=== PATIENT | female | born 1990 | race Caucasian/White ===

== ENCOUNTER 2017-01-08 03:31 | Emergency (ER) | payer MEDICAID ==
[~2017-01-08] VITALS: Ht 160 cm; Wt 68.0 kg
[~2017-01-08 03:31] MED LIST: HYDR-3812 PO; IBP800T PO; OXYC-12 PO; PREN1TAB39 PO
[2017-01-08 04:09] LABS: BILIRUBIN,URINE NEGATIVE (NEGATIVE); KETONES,URINE NEGATIVE (NEGATIVE); LEUKOCYTE ESTERASE ,URINE 3+ (NEGATIVE); NITRITE,URINE NEGATIVE (NEGATIVE); PH,URINE 7 (5-9); PROTEIN,URINE 1+ (NEGATIVE); UROBILINOGEN,URINE 1 MG/DL (NORMAL)
--- NOTE | 2017-01-08 04:13 | ED GU-Female ---
General Chief Complaint: -Female Stated Complaint: YEAST INFECTION,8 WKS PREG Source: patient History of Present Illness Time seen by provider: 03:50 Initial Comments PT STATES SHE IS 8 WEEKS HAS HAD THICK WHITE VAGINAL DISCHARGE AND ITCHING --STATES SHE HAS A YEAST INFECTION NO ABDOMINAL PAIN NO VAGINAL BLEEDING HAS SOME MILD BURNING ON URINATION HAS AN APPOINTMENT ON SATURDAY WITH HER SCHOOL AIDE Allergies and Home Medications Allergies Coded Allergies: NKANo Known Allergies (Verified Allergy, Unknown, 06/11/08) Home Medications Nitrofurantoin Monohyd/M-Cryst 100 Mg Capsule, 100 MG PO BID, #20 Prescribed by: FREDDIE GONCALVES on 01/08/17 0421 Vit/Iron Fumarate/FA 1 Each Tablet, 1 EACH PO DAILY, (Reported) Respiratory: no symptoms reported Cardiovascular: no symptoms reported Gastrointestinal: no symptoms reported Genitourinary: see HPI : Yes Musculoskeletal: no symptoms reported Skin: no symptoms reported Past Wsnnbgz-Nrrzpj-Mamyel Hx Patient Social History Type Used: Cigarettes Recent Foreign Travel: No Contact w/Someone Who Travel: No Recent Hopitalizations: No Immunizations Up To Date Tetanus Booster (TDap): Unknown PED Vaccines UTD: Yes Seasonal Allergies Seasonal Allergies: No Surgeries HX Surgeries: Yes (skull surgery at 10 months of age) Respiratory Hx Respiratory Disorders: No Cardiovascular Hx Cardiac Disorders: No Neurological Hx Neurological Disorders: No Reproductive System Hx Reproductive Disorders: No Sexually Transmitted Disease: Yes Female Reproductive Disorders: Denies Genitourinary Hx Genitourinary Disorders: No (uti- february 2016) Gastrointestinal Hx Gastrointestinal Disorders: No Musculoskeletal Hx Musculoskeletal Disorders: Yes (had skull surgery fpr fused suture at 10 months of age) Endocrine Hx Endocrine Disorders: No HEENT HX ENT Disorders: No Cancer Hx Cancer: No Psychosocial Hx Psychiatric Problems: No Integumentary HX Skin/Integumentary Disorder: No Blood Transfusions Hx Blood Disorders: No Family Medical History Significant Family History: No Pertinent Family Hx Physical Exam Vital Signs Capillary Refill : General Appearance: WD/WN, no apparent distress Cardiovascular: regular rate, rhythm Respiratory: normal breath sounds Gastrointestinal: normal bowel sounds, non tender, soft Pelvic: discharge, No lesions, No mass, No tender w/ cervical motion, No tender adnexa, No tender uterus, No vaginal bleeding, other (ERYTHEMA TO EXTERNAL GENITAL AREA) Back: no CVA tenderness Extremities: normal inspection, no pedal edema Neurologic/Psychiatric: bit tapper II-XII nml as tested, no motor/sensory deficits, alert, normal mood/affect, oriented x 3 Progress/Results/Core Measures Results/Orders Lab Results My Orders Departure Impression Impression: Primary Impression: Vaginitis affecting in first trimester, antepartum Additional Impression: UTI (urinary tract infection) in in first trimester Disposition: HOME, SELF-CARE Condition: Stable Departure-Patient Inst. Referrals: [facility] (PCP/Family) Primary Care Physician Patient Instructions: Urinary Tract Infection, Adult (DC), Vaginal Discharge in Adults Add. Discharge Instructions: TYLENOL NEEDED FOR PAIN LOTS OF WATER, NO COFFEE, POP OR TEA OVER THE COUNTER YEAST MEDICATION ADVISED BY YOUR DR FOLLOW UP WITH YOUR DR ON SATURDAY SCHEDULED All discharge instructions reviewed with patient and/or family. Voiced understanding. Scripts Nitrofurantoin Monohyd/M-Cryst (Macrobid 100 mg Capsule) 100 Mg Capsule 100 MG PO BID, #20 CAP Prov: FREDDIE GONCALVES DO 01/08/17 FREDDIE GONCALVES DO Jan 08, 2017 04:12
[2017-01-08 04:16] LABS: SQUAMOUS EPITHELIAL CELL,UR >50 /HPF
[2017-01-08] MEDS ORDERED: PREN-37 PO (04:20)
[2017-01-08] MEDS ORDERED: NITR-65 PO (04:21)
[2017-01-08 04:24] VITALS: BP 116/86
[2017-01-10 07:29] LABS: NEISSERIA GONORRHEA DNA Negative (Negative)
[2017-01-10 07:30] LABS: CHLAMYDIA DNA PROBE PT Negative (Negative)
--- OUTSIDE RECORDS SUMMARY | 2017-01-22 19:47 | XMS REPORT ---
Author EVIE Bruner [facility] eClinicalWorks Address Unknown Phone Unavailable Care Team Providers Care Pattern Changer Name Role Phone EVIE LONGORIA CP Unavailable Allergies, Adverse Reactions, Alerts Substance Reaction Event Type N.K.D.A. Info Not Available Non Drug Allergy Problems Problem Type Condition Code Onset Dates Condition Status Problem Constipation 564.00 Active Problem Urinary tract infection 599.0 Active Problem Abdominal pain 789.00 Active Medications Medication Code System Code Instructions Start Date End Date Status Dosage Norelgestromin-Eth Estradiol [facility] [address]-10 150-35 MCG/24HR Transdermal once weekly March 26, 2016 1 patch to skin Results No Known Results Summary Purpose eClinicalWorks Submission
--- OUTSIDE RECORDS SUMMARY | 2017-01-22 19:48 | XMS REPORT ---
Author AMANDA Cortez [facility] eClinicalWorks Address Unknown Phone Unavailable Care Team Providers Care Accounts Payable Representative Name Role Phone AMANDA NAILS CP Unavailable Allergies, Adverse Reactions, Alerts Substance Reaction Event Type N.K.D.A. Info Not Available Non Drug Allergy Problems Problem Type Condition Code Onset Dates Condition Status Problem Constipation 564.00 Active Problem Urinary tract infection 599.0 Active Problem Abdominal pain 789.00 Active Assessment Vaginal andrew B37.3 Active Assessment UTI (urinary tract infection) N39.0 Active Assessment Dysuria R30.0 Active Medications Medication Code System Code Instructions Start Date End Date Status Dosage Diflucan [facility] [address]-88 150 MG Orally Once a day February 01, 2016 1 tablet Amoxicillin [facility] [address]-01 500 MG Orally Three times a day 1 capsule Bactrim DS [facility] [address]-14 800-160 MG Orally Twice a day February 01, 2016 February 11, 2016 1 tablet [place] [facility] [address]-87 5-325 MG Orally every 6 hrs 1 tablet as needed Procedures Procedure Coding System Code Date URINALYSIS, AUTO, W/O SCOPE CPT-4 75213 February 01, 2016 Office Visit, Est Pt., Level 3 CPT-4 89882 February 01, 2016 Vital Signs Date/Time: February 01, 2016 Temperature 99.4 F Weight 161.4 lbs Height 62 in BMI 29.52 Index Blood Pressure Diastolic 76 mmHg Blood Pressure Systolic 104 mmHg Cardiac Monitoring Heart Rate 68 bpm Results Name Result Date Reference Range Unit Abnormality Flag UA LONG DIP (IN HOUSE) ----VERENICE 3+ 20160201 ----NIT Negative 20160201 ----Exp date 20160201 ----Lot # [id number] ----SG 1.025 20160201 ----KET Negative 20160201 ----MARÍA ELENA Negative 20160201 ----GLU Negative 20160201 ----Odor Strong 20160201 ----pH 6.5 20160201 ----BLO Negative 20160201 ----URO 1.0 20160201 ----Protein Negative 20160201 ----Lot # [id number] ----Exp date 20160201 ----Clarity Cloudy 20160201 ----Color Yellow 20160201 Summary Purpose eClinicalWorks Submission
--- OUTSIDE RECORDS SUMMARY | 2017-01-22 19:48 | XMS REPORT | Continuity of Care Document ---
Author Author [facility] Address Unknown Phone Unavailable Allergies Medications Problems Date Dx Coded Attending Type Code Diagnosis Diagnosed By 05/24/2008 V65.11 New Mommy Visit 05/24/2008 V65.11 New Mommy Visit 05/24/2008 V65.11 New Mommy Visit 05/24/2008 JOHN ABRAMS APRN V65.11 New Mommy Visit 05/24/2008 DEREK NAIK APRN V65.11 New Mommy Visit 05/24/2008 DEREK NAIK APRN A V65.11 New Mommy Visit 05/24/2008 DEREK NAIK APRN A V65.11 New Mommy Visit 05/24/2008 JOHN ABRAMS APRN V65.11 New Mommy Visit 05/24/2008 BRANDON CARDENAS DO V65.11 New Mommy Visit 05/24/2008 JOHN ABRAMS APRN V65.11 New Mommy Visit 05/24/2008 RUDI SUTTON DDS V65.11 New Mommy Visit 06/27/2009 912.4 Insect Bite Nonvenomous Of Shoulder And Upper Arm Without Infection 06/27/2009 912.4 Insect Bite Nonvenomous Of Shoulder And Upper Arm Without Infection 06/27/2009 912.4 Insect Bite Nonvenomous Of Shoulder And Upper Arm Without Infection 06/27/2009 JOHN ABRAMS APRN 912.4 Insect Bite Nonvenomous Of Shoulder And Upper Arm Without Infection 06/27/2009 DEREK NAIK APRN A 912.4 Insect Bite Nonvenomous Of Shoulder And Upper Arm Without Infection 06/27/2009 DEREK NAIK APRN A 912.4 Insect Bite Nonvenomous Of Shoulder And Upper Arm Without Infection 06/27/2009 DEREK NAIK APRN A 912.4 Insect Bite Nonvenomous Of Shoulder And Upper Arm Without Infection 06/27/2009 JOHN ABRAMS APRN R 912.4 Insect Bite Nonvenomous Of Shoulder And Upper Arm Without Infection 06/27/2009 CARDENAS BRANDON JONES K 912.4 Insect Bite Nonvenomous Of Shoulder And Upper Arm Without Infection 06/27/2009 VIKASH ABRAMS APRNIA R 912.4 Insect Bite Nonvenomous Of Shoulder And Upper Arm Without Infection 06/27/2009 WHITE DDS, RUDI J 912.4 Insect Bite Nonvenomous Of Shoulder And Upper Arm Without Infection 06/06/2010 536.8 Dyspepsia And Other Specified Disorders Of Function Of Stomach 06/06/2010 681.11 Onychia And Paronychia Of Toe 06/06/2010 536.8 Dyspepsia And Other Specified Disorders Of Function Of Stomach 06/06/2010 681.11 Onychia And Paronychia Of Toe 06/06/2010 536.8 Dyspepsia And Other Specified Disorders Of Function Of Stomach 06/06/2010 681.11 Onychia And Paronychia Of Toe 06/06/2010 JOHN ABRAMS APRN R 536.8 Dyspepsia And Other Specified Disorders Of Function Of Stomach 06/06/2010 VIKASH ABRAMS APRNIA R 681.11 Onychia And Paronychia Of Toe 06/06/2010 DEREK NAIK APRN A 536.8 Dyspepsia And Other Specified Disorders Of Function Of Stomach 06/06/2010 DONNY NAIK APRNIDI A 681.11 Onychia And Paronychia Of Toe 06/06/2010 DEREK NAIK APRN A 536.8 Dyspepsia And Other Specified Disorders Of Function Of Stomach 06/06/2010 DONNY NAIK APRNIDI A 681.11 Onychia And Paronychia Of Toe 06/06/2010 DONNY NAIK APRNIDI A 536.8 Dyspepsia And Other Specified Disorders Of Function Of Stomach 06/06/2010 DONNY NAIK APRNIDI A 681.11 Onychia And Paronychia Of Toe 06/06/2010 JOHN ABRAMS APRN R 536.8 Dyspepsia And Other Specified Disorders Of Function Of Stomach 06/06/2010 JOHN ABRAMS APRN R 681.11 Onychia And Paronychia Of Toe 06/06/2010 BRANDON CARDENAS DO K 536.8 Dyspepsia And Other Specified Disorders Of Function Of Stomach 06/06/2010 BRANDON CARDENAS DO K 681.11 Onychia And Paronychia Of Toe 06/06/2010 JOHN ABRAMS APRN R 536.8 Dyspepsia And Other Specified Disorders Of Function Of Stomach 06/06/2010 JOHN ABRAMS APRN R 681.11 Onychia And Paronychia Of Toe 06/06/2010 WHITE HAYDESRUDI 536.8 Dyspepsia And Other Specified Disorders Of Function Of Stomach 06/06/2010 HERMAN LOCKSRUDI 681.11 Onychia And Paronychia Of Toe 06/21/2010 NODX No Diagnosis 06/21/2010 NODX No Diagnosis 06/21/2010 NODX No Diagnosis 06/21/2010 JOHN ABRAMS APRN R NODX No Diagnosis 06/21/2010 HEENA GRADUATE INTERN, DEREK A NODX No Diagnosis 06/21/2010 HEENADaphnie SIMON DEREK A NODX No Diagnosis 06/21/2010 HEENA APRN, DEREK A NODX No Diagnosis 06/21/2010 JOHN ABRAMS APRN R NODX No Diagnosis 06/21/2010 BRANDON CARDENAS DO NODX No Diagnosis 06/21/2010 VIKASH ABRAMS APRNIA R NODX No Diagnosis 06/21/2010 HERMAN MCNEILL, RUDI J NODX No Diagnosis 07/19/2010 626.4 Irregular Menstrual Cycle 07/19/2010 V72.31 Embalmer/Funeral Director Exam, Routine 07/19/2010 V72.42 Test Positive Result 07/19/2010 V74.5 Std Screen 07/19/2010 626.4 Irregular Menstrual Cycle 07/19/2010 V72.31 Embalmer/Funeral Director Exam, Routine 07/19/2010 V72.42 Test Positive Result 07/19/2010 V74.5 Std Screen 07/19/2010 626.4 Irregular Menstrual Cycle 07/19/2010 V72.31 Embalmer/Funeral Director Exam, Routine 07/19/2010 V72.42 Test Positive Result 07/19/2010 V74.5 Std Screen 07/19/2010 JOHN ABRAMS APRN R 626.4 Irregular Menstrual Cycle 07/19/2010 ABRAMS GRADUATE INTERN, JOHN R V72.31 Embalmer/Funeral Director Exam, Routine 07/19/2010 ABRAMS GRADUATE INTERN, JOHN R V72.42 Test Positive Result 07/19/2010 ABRAMS GRADUATE INTERN, JOHN R V74.5 Std Screen 07/19/2010 HEENA GRADUATE INTERN, DEREK A 626.4 Irregular Menstrual Cycle 07/19/2010 HEENA GRADUATE INTERN, DEREK A V72.31 Embalmer/Funeral Director Exam, Routine 07/19/2010 HEENA GRADUATE INTERN, DEREK A V72.42 Test Positive Result 07/19/2010 HEENA GRADUATE INTERN, DEREK A V74.5 Std Screen 07/19/2010 HEENA GRADUATE INTERN, DEREK A 626.4 Irregular Menstrual Cycle 07/19/2010 HEENA GRADUATE INTERN, DEREK A V72.31 Embalmer/Funeral Director Exam, Routine 07/19/2010 HEENA GRADUATE INTERN, DEREK A V72.42 Test Positive Result 07/19/2010 HEENA GRADUATE INTERN, DEREK A V74.5 Std Screen 07/19/2010 HEENA GRADUATE INTERN, DEREK A 626.4 Irregular Menstrual Cycle 07/19/2010 HEENA GRADUATE INTERN, DEREK A V72.31 Embalmer/Funeral Director Exam, Routine 07/19/2010 HEENA GRADUATE INTERN, DEREK A V72.42 Test Positive Result 07/19/2010 HEENA GRADUATE INTERN, DEREK A V74.5 Std Screen 07/19/2010 ABRAMS GRADUATE INTERN, JHON R 626.4 Irregular Menstrual Cycle 07/19/2010 ABRAMS GRADUATE INTERN, JOHN R V72.31 Embalmer/Funeral Director Exam, Routine 07/19/2010 ABRAMS GRADUATE INTERN, JOHN R V72.42 Test Positive Result 07/19/2010 ABRAMS GRADUATE INTERN, JOHN R V74.5 Std Screen 07/19/2010 CARDENAS DO, BRANDON K 626.4 Irregular Menstrual Cycle 07/19/2010 CARDENAS DO, BRANDON K V72.31 Embalmer/Funeral Director Exam, Routine 07/19/2010 CARDENAS DO, BRANDON K V72.42 Test Positive Result 07/19/2010 CARDENAS DO, BRANDON K V74.5 Std Screen 07/19/2010 ABRAMS GRADUATE INTERN, JOHN R 626.4 Irregular Menstrual Cycle 07/19/2010 ABRAMS GRADUATE INTERN, JOHN R V72.31 Embalmer/Funeral Director Exam, Routine 07/19/2010 JOSE ALBERTO SIMON, JOHN R V72.42 Test Positive Result 07/19/2010 LUZ MARIA ABRAMS APRNRICIA R V74.5 Std Screen 07/19/2010 WHITE DDS, RUDI J 626.4 Irregular Menstrual Cycle 07/19/2010 WHITE DDS, RUDI J V72.31 Embalmer/Funeral Director Exam, Routine 07/19/2010 WHITE DDS, RUDI J V72.42 Test Positive Result 07/19/2010 WHITE DDS, RUDI J V74.5 Std Screen 08/24/2010 V22.1 , NORMAL OTHER 08/24/2010 V22.1 , NORMAL OTHER 08/24/2010 V22.1 , NORMAL OTHER 08/24/2010 VIKASH ABRAMS APRNIA R V22.1 , NORMAL OTHER 08/24/2010 HEENA SIMON, DEREK A V22.1 , NORMAL OTHER 08/24/2010 DONNY NAIK APRNIDI A V22.1 , NORMAL OTHER 08/24/2010 HEENA SIMON DEREK A V22.1 , NORMAL OTHER 08/24/2010 LUZ MARIA ABRAMS APRNRICIA R V22.1 , NORMAL OTHER 08/24/2010 THERESA JONES BRANDON K V22.1 , NORMAL OTHER 08/24/2010 LUZ MARIA ABRAMS APRNRICIA R V22.1 , NORMAL OTHER 08/24/2010 WHITE DDS, RUDI J V22.1 , NORMAL OTHER 09/05/2010 V04.3 RUBELLA NON-IMMUNE - NEED FOR VACCINATION 09/05/2010 V04.3 RUBELLA NON-IMMUNE - NEED FOR VACCINATION 09/05/2010 V04.3 RUBELLA NON-IMMUNE - NEED FOR VACCINATION 09/05/2010 VIKASH ABRAMS APRNIA R V04.3 RUBELLA NON-IMMUNE - NEED FOR VACCINATION 09/05/2010 DEREK NAIK APRN A V04.3 RUBELLA NON-IMMUNE - NEED FOR VACCINATION 09/05/2010 DEREK NAIK APRN A V04.3 RUBELLA NON-IMMUNE - NEED FOR VACCINATION 09/05/2010 DEREK NAIK APRN A V04.3 RUBELLA NON-IMMUNE - NEED FOR VACCINATION 09/05/2010 JOHN ABRAMS APRN R V04.3 RUBELLA NON-IMMUNE - NEED FOR VACCINATION 09/05/2010 CARDENAS DO, BRANDON K V04.3 RUBELLA NON-IMMUNE - NEED FOR VACCINATION 09/05/2010 JOHN ABRAMS APRN R V04.3 RUBELLA NON-IMMUNE - NEED FOR VACCINATION 09/05/2010 WHITE DDS, RUDI J V04.3 RUBELLA NON-IMMUNE - NEED FOR VACCINATION 09/12/2010 703.0 Nail Ingrown 09/12/2010 V22.2 Incidental 09/12/2010 703.0 Nail Ingrown 09/12/2010 V22.2 Incidental 09/12/2010 703.0 Nail Ingrown 09/12/2010 V22.2 Incidental 09/12/2010 JOHN ABRAMS APRN R 703.0 Nail Ingrown 09/12/2010 VIKASH ABRAMS APRNIA R V22.2 Incidental 09/12/2010 HEENA GRADUATE INTERN, DEREK A 703.0 Nail Ingrown 09/12/2010 HEENA GRADUATE INTERN, DEREK A V22.2 Incidental 09/12/2010 HEENA GRADUATE INTERN, DEREK A 703.0 Nail Ingrown 09/12/2010 HEENA GRADUATE INTERN, DEREK A V22.2 Incidental 09/12/2010 HEENA GRADUATE INTERN, DEREK A 703.0 Nail Ingrown 09/12/2010 HEENA GRADUATE INTERN, DEREK A V22.2 Incidental 09/12/2010 VIKASH ABRAMS APRNIA R 703.0 Nail Ingrown 09/12/2010 VIKASH ABRAMS APRNIA R V22.2 Incidental 09/12/2010 CARDENAS DO, BRANDON K 703.0 Nail Ingrown 09/12/2010 CARDENAS DO, BRANDON K V22.2 Incidental 09/12/2010 VIKASH ABRAMS APRNIA R 703.0 Nail Ingrown 09/12/2010 VIKASH ABRAMS APRNIA R V22.2 Incidental 09/12/2010 WHITE DDS, RUDI J 703.0 Nail Ingrown 09/12/2010 WHITE DDS, RUDI J V22.2 Incidental 11/13/2010 616.10 Vaginitis Vulvovaginitis Unspecified 11/13/2010 616.10 Vaginitis Vulvovaginitis Unspecified 11/13/2010 616.10 Vaginitis Vulvovaginitis Unspecified 11/13/2010 JOHN ABRAMS APRN R 616.10 Vaginitis Vulvovaginitis Unspecified 11/13/2010 HEENA APRN, DEREK A 616.10 Vaginitis Vulvovaginitis Unspecified 11/13/2010 HEENADONNY Eller APRNIDI A 616.10 Vaginitis Vulvovaginitis Unspecified 11/13/2010 HEENA APRN, DEREK A 616.10 Vaginitis Vulvovaginitis Unspecified 11/13/2010 JOHN ABRAMS APRN R 616.10 Vaginitis Vulvovaginitis Unspecified 11/13/2010 BRANDON CARDENAS DO 616.10 Vaginitis Vulvovaginitis Unspecified 11/13/2010 JOHN ABRAMS APRN R 616.10 Vaginitis Vulvovaginitis Unspecified 11/13/2010 RUDI SUTTON DDS 616.10 Vaginitis Vulvovaginitis Unspecified 11/21/2010 789.00 Abdominal Pain Unspecified Site 11/21/2010 789.00 Abdominal Pain Unspecified Site 11/21/2010 789.00 Abdominal Pain Unspecified Site 11/21/2010 JOHN ABRAMS APRN R 789.00 Abdominal Pain Unspecified Site 11/21/2010 HEENA SIMON, DEREK A 789.00 Abdominal Pain Unspecified Site 11/21/2010 DONNY NAIK APRNIDI A 789.00 Abdominal Pain Unspecified Site 11/21/2010 DONNY NAIK APRNIDI A 789.00 Abdominal Pain Unspecified Site 11/21/2010 JOHN ABRAMS APRN R 789.00 Abdominal Pain Unspecified Site 11/21/2010 BRANDON CARDENAS DO 789.00 Abdominal Pain Unspecified Site 11/21/2010 JOHN ABRAMS APRN R 789.00 Abdominal Pain Unspecified Site 11/21/2010 RUDI SUTTON DDS 789.00 Abdominal Pain Unspecified Site 02/07/2011 V02.51 GBS - CARRIER OR SUSPECTED CARRIER 02/07/2011 V02.51 GBS - CARRIER OR SUSPECTED CARRIER 02/07/2011 V02.51 GBS - CARRIER OR SUSPECTED CARRIER 02/07/2011 JOSE ALBERTO VILLAREALN, JOHN R V02.51 GBS - CARRIER OR SUSPECTED CARRIER 02/07/2011 HEENA GRADUATE INTERN, DEREK A V02.51 GBS - CARRIER OR SUSPECTED CARRIER 02/07/2011 HEENA GRADUATE INTERN, DEREK A V02.51 GBS - CARRIER OR SUSPECTED CARRIER 02/07/2011 HEENA GRADUATE INTERN, DEREK A V02.51 GBS - CARRIER OR SUSPECTED CARRIER 02/07/2011 JOSE ALBERTO VILLAREALNLUZ MARIAJOHN R V02.51 GBS - CARRIER OR SUSPECTED CARRIER 02/07/2011 BRANDON CARDENAS DO V02.51 GBS - CARRIER OR SUSPECTED CARRIER 02/07/2011 VIKASH ABRAMS APRNIA R V02.51 GBS - CARRIER OR SUSPECTED CARRIER 02/07/2011 RUDI SUTTON DDS V02.51 GBS - CARRIER OR SUSPECTED CARRIER 05/14/2011 623.5 vaginal discharge 05/14/2011 V24.2 visit for: exam 05/14/2011 623.5 vaginal discharge 05/14/2011 V24.2 visit for: exam 05/14/2011 623.5 vaginal discharge 05/14/2011 V24.2 visit for: exam 05/14/2011 JOSE ALBERTO VILLAREALNVIKASHIA R 623.5 vaginal discharge 05/14/2011 LUZ MARIA ABRAMS APRNRICIA R V24.2 visit for: exam 05/14/2011 HEENA GRADUATE INTERN, DEREK A 623.5 vaginal discharge 05/14/2011 HEENA GRADUATE INTERN, DEREK A V24.2 visit for: exam 05/14/2011 HEENA GRADUATE INTERN, DEREK A 623.5 vaginal discharge 05/14/2011 HEENA GRADUATE INTERN, DEREK A V24.2 visit for: exam 05/14/2011 HEENA GRADUATE INTERN, DEREK A 623.5 vaginal discharge 05/14/2011 HEENA GRADUATE INTERN, DEREK A V24.2 visit for: exam 05/14/2011 VIKASH ABRAMS APRNIA R 623.5 vaginal discharge 05/14/2011 LUZ MARIA ABRAMS APRNRICIA R V24.2 visit for: exam 05/14/2011 CARDENAS DO, BRANDON K 623.5 vaginal discharge 05/14/2011 BRANDON CARDENAS DO V24.2 visit for: exam 05/14/2011 JOHN ABRAMS APRN R 623.5 vaginal discharge 05/14/2011 JOHN ABRAMS APRN R V24.2 visit for: exam 05/14/2011 WHITE HAYDESRUDI J 623.5 vaginal discharge 05/14/2011 WHITE DDS, RUDI J V24.2 visit for: exam 08/07/2011 372.30 CONJUNCTIVITIS UNSPECIFIED 08/07/2011 372.30 CONJUNCTIVITIS UNSPECIFIED 08/07/2011 372.30 CONJUNCTIVITIS UNSPECIFIED 08/07/2011 JOHN ABRAMS APRN R 372.30 CONJUNCTIVITIS UNSPECIFIED 08/07/2011 HEENA GRADUATE INTERN, DEREK A 372.30 CONJUNCTIVITIS UNSPECIFIED 08/07/2011 HEENA GRADUATE INTERN, DEREK A 372.30 CONJUNCTIVITIS UNSPECIFIED 08/07/2011 HEENA AURORA, DEREK A 372.30 CONJUNCTIVITIS UNSPECIFIED 08/07/2011 JOHN ABRAMS APRN R 372.30 CONJUNCTIVITIS UNSPECIFIED 08/07/2011 BRANDON CARDENAS DO 372.30 CONJUNCTIVITIS UNSPECIFIED 08/07/2011 JOHN ABRAMS APRN R 372.30 CONJUNCTIVITIS UNSPECIFIED 08/07/2011 RUDI SUTTON DDS J 372.30 CONJUNCTIVITIS UNSPECIFIED 01/21/2012 V25.41 visit for: contraceptive surveillance pill 01/21/2012 V74.5 visit for: screening exam bact/spirochetal venereal disease 01/21/2012 V76.2 Cervical Pap Smear 01/21/2012 V25.41 visit for: contraceptive surveillance pill 01/21/2012 V74.5 visit for: screening exam bact/spirochetal venereal disease 01/21/2012 V76.2 Cervical Pap Smear 01/21/2012 V25.41 visit for: contraceptive surveillance pill 01/21/2012 V74.5 visit for: screening exam bact/spirochetal venereal disease 01/21/2012 V76.2 Cervical Pap Smear 01/21/2012 JOHN ABRAMS APRN R V25.41 visit for: contraceptive surveillance pill 01/21/2012 JOHN ABRAMS APRN V74.5 visit for: screening exam bact/ spirochetal venereal disease 01/21/2012 VIKASH ABRAMS APRNIA R V76.2 Cervical Pap Smear 01/21/2012 HEENA SIMON DEREK A V25.41 visit for: contraceptive surveillance pill 01/21/2012 HEENA VILLAREALDaphnie DEREK A V74.5 visit for: screening exam bact/ spirochetal venereal disease 01/21/2012 HEENA SIMON DEREK A V76.2 Cervical Pap Smear 01/21/2012 HEENA VILLAREALDaphnie DEREK A V25.41 visit for: contraceptive surveillance pill 01/21/2012 HEENA VILLAREALDaphnie DEREK A V74.5 visit for: screening exam bact/ spirochetal venereal disease 01/21/2012 HEENA SIMON DEREK A V76.2 Cervical Pap Smear 01/21/2012 HEENA VILLAREALDaphnie DEREK A V25.41 visit for: contraceptive surveillance pill 01/21/2012 HEENA VILLAREALDONNY EllerIDI A V74.5 visit for: screening exam bact/ spirochetal venereal disease 01/21/2012 HEENA VILLAREALDaphnie DEREK A V76.2 Cervical Pap Smear 01/21/2012 VIKASH ABRAMS APRNIA R V25.41 visit for: contraceptive surveillance pill 01/21/2012 VIKASH ABRAMS APRNIA R V74.5 visit for: screening exam bact/ spirochetal venereal disease 01/21/2012 VIKASH ABRAMS APRNIA R V76.2 Cervical Pap Smear 01/21/2012 ALVIN CARDENAS DOA K V25.41 visit for: contraceptive surveillance pill 01/21/2012 BRANDON CARDENAS DO K V74.5 visit for: screening exam bact/spirochetal venereal disease 01/21/2012 BRANDON CARDENAS DO K V76.2 Cervical Pap Smear 01/21/2012 VIKASH ABRAMS APRNIA R V25.41 visit for: contraceptive surveillance pill 01/21/2012 VIKASH ABRAMS APRNIA R V74.5 visit for: screening exam bact/ spirochetal venereal disease 01/21/2012 VIKASH ABRAMS APRNIA R V76.2 Cervical Pap Smear 01/21/2012 RUDI SUTTON DDS V25.41 visit for: contraceptive surveillance pill 01/21/2012 RUDI SUTTON DDS V74.5 visit for: screening exam bact/ spirochetal venereal disease 01/21/2012 RUDI SUTTON DDS V76.2 Cervical Pap Smear 01/19/2013 V25.01 CONTRACEPTION - ORAL CONTRACEPTION 01/19/2013 V76.10 BREAST CANCER SCREENING 01/19/2013 V25.01 CONTRACEPTION - ORAL CONTRACEPTION 01/19/2013 V76.10 BREAST CANCER SCREENING 01/19/2013 V25.01 CONTRACEPTION - ORAL CONTRACEPTION 01/19/2013 V76.10 BREAST CANCER SCREENING 01/19/2013 JOHN ABRAMS APRN R V25.01 CONTRACEPTION - ORAL CONTRACEPTION 01/19/2013 JOHN ABRAMS APRN R V76.10 BREAST CANCER SCREENING 01/19/2013 DONNY NAIK APRNIDI A V25.01 CONTRACEPTION - ORAL CONTRACEPTION 01/19/2013 DEREK NAIK APRN A V76.10 BREAST CANCER SCREENING 01/19/2013 DONNY NAIK APRNIDI A V25.01 CONTRACEPTION - ORAL CONTRACEPTION 01/19/2013 DEREK NAIK APRN A V76.10 BREAST CANCER SCREENING 01/19/2013 DONNY NAIK APRNIDI A V25.01 CONTRACEPTION - ORAL CONTRACEPTION 01/19/2013 DEREK NAIK APRN A V76.10 BREAST CANCER SCREENING 01/19/2013 JOHN ABRAMS APRN R V25.01 CONTRACEPTION - ORAL CONTRACEPTION 01/19/2013 JOHN ABRAMS APRN R V76.10 BREAST CANCER SCREENING 01/19/2013 BRANDON CARDENAS DO V25.01 CONTRACEPTION - ORAL CONTRACEPTION 01/19/2013 BRANDON CARDENAS DO V76.10 BREAST CANCER SCREENING 01/19/2013 JOHN ABRAMS APRN R V25.01 CONTRACEPTION - ORAL CONTRACEPTION 01/19/2013 JOHN ABRAMS APRN R V76.10 BREAST CANCER SCREENING 01/19/2013 RUDI SUTTON DDS V25.01 CONTRACEPTION - ORAL CONTRACEPTION 01/19/2013 RUDI SUTTON DDS V76.10 BREAST CANCER SCREENING 01/28/2013 462 sore throat 01/28/2013 462 sore throat 01/28/2013 JOHN ABRAMS APRN R 462 sore throat 01/28/2013 DEREK NAIK APRN A 462 sore throat 01/28/2013 HEENA GRADUATE INTERN, DEREK A 462 sore throat 01/28/2013 HEENA GRADUATE INTERN, DEREK A 462 sore throat 01/28/2013 ABRAMS GRADUATE INTERN, JOHN R 462 sore throat 01/28/2013 CARDENAS DO BRANDON K 462 sore throat 01/28/2013 ABRAMS GRADUATE INTERN, JOHN R 462 sore throat 01/28/2013 WHITE DDMeghna, RUDI Mcmullen 462 sore throat 06/22/2013 ABRAMS GRADUATE INTERN, JOHN R 789.06 ABDOMINAL PAIN EPIGASTRIC 06/22/2013 HEENA GRADUATE INTERN, DEREK A 789.06 ABDOMINAL PAIN EPIGASTRIC 06/22/2013 HEENA GRADUATE INTERN, DEREK A 789.06 ABDOMINAL PAIN EPIGASTRIC 06/22/2013 HEENA GRADUATE INTERN, DEREK A 789.06 ABDOMINAL PAIN EPIGASTRIC 06/22/2013 ABRAMS GRADUATE INTERN, JOHN R 789.06 ABDOMINAL PAIN EPIGASTRIC 06/22/2013 CARDENAS DO BRANDON K 789.06 ABDOMINAL PAIN EPIGASTRIC 06/22/2013 ABRAMS GRADUATE INTERN, JOHN R 789.06 ABDOMINAL PAIN EPIGASTRIC 06/22/2013 WHITE DDS, RUDI Mcmullen 789.06 ABDOMINAL PAIN EPIGASTRIC 08/21/2013 ABRAMS GRADUATE INTERN, JOHN R 724.2 BACK PAIN, LOWER 08/21/2013 HEENA GRADUATE INTERN, DEREK A 724.2 BACK PAIN, LOWER 08/21/2013 HEENA GRADUATE INTERN, DEREK A 724.2 BACK PAIN, LOWER 08/21/2013 HEENA GRADUATE INTERN, DEREK A 724.2 BACK PAIN, LOWER 08/21/2013 ABRAMS GRADUATE INTERN, JOHN R 724.2 BACK PAIN, LOWER 08/21/2013 CARDENAS DO BRANDON K 724.2 BACK PAIN, LOWER 08/21/2013 ABRAMS GRADUATE INTERN, JOHN R 724.2 BACK PAIN, LOWER 08/21/2013 WHITE DDS, RUDI J 724.2 BACK PAIN, LOWER 01/14/2014 HEENA GRADUATE INTERN, DEREK A 599.0 URINARY TRACT INFECTION 01/14/2014 HEENA GRADUATE INTERN, DEREK A 788.1 DYSURIA 01/14/2014 HEENA GRADUATE INTERN, DEREK A 599.0 URINARY TRACT INFECTION 01/14/2014 DONNY NAIK APRNIDI A 788.1 DYSURIA 01/14/2014 LUZ MARIA ABRAMS APRNRICIA R 599.0 URINARY TRACT INFECTION 01/14/2014 LUZ MARIA ABRAMS APRNRICIA R 788.1 DYSURIA 01/14/2014 CARDENAS DO BRANDON K 599.0 URINARY TRACT INFECTION 01/14/2014 CARDENAS DO BRANDON K 788.1 DYSURIA 01/14/2014 ABRAMS LUZ MARIA SIMONRICIA R 599.0 URINARY TRACT INFECTION 01/14/2014 ABRAMS AURORA JOHN R 788.1 DYSURIA 01/14/2014 WHITE DDSRUDI J 599.0 URINARY TRACT INFECTION 01/14/2014 WHITE HAYDESRUDI J 788.1 DYSURIA 04/22/2014 DONNY NAIK APRNIDI A V72.31 BAND MASTER EXAM, ROUTINE 04/22/2014 LUZ MARIA ABRAMS APRNRICIA R V72.31 BAND MASTER EXAM, ROUTINE 04/22/2014 THERESA JONES BRANDON K V72.31 BAND MASTER EXAM, ROUTINE 04/22/2014 ABRAMS LUZ MARIA SIMONRICIA R V72.31 BAND MASTER EXAM, ROUTINE 04/22/2014 WHITE HAYDESRUDI J V72.31 BAND MASTER EXAM, ROUTINE 05/19/2014 LUZ MARIA ABRAMS APRNRICIA R 786.2 COUGH 05/19/2014 THERESA JONES BRANDON K 786.2 COUGH 05/19/2014 LUZ MARIA ABRAMS APRNRICIA R 786.2 COUGH 05/19/2014 WHITE HAYDESRUDI J 786.2 COUGH 09/23/2014 THERESA JONES BRANDON K 465.9 ACUTE UPPER RESPIRATORY INFECTIONS OF UNSPECIFIED SITE 09/23/2014 CARDENAS DO BRANDON K 625.8 OTHER SPECIFIED SYMPTOMS ASSOCIATED WITH FEMALE GENITAL ORGANS 09/23/2014 LUZ MARIA ABRAMS APRNRICIA R 465.9 ACUTE UPPER RESPIRATORY INFECTIONS OF UNSPECIFIED SITE 09/23/2014 LUZ MARIA ABRAMS APRNRICIA R 625.8 OTHER SPECIFIED SYMPTOMS ASSOCIATED WITH FEMALE GENITAL ORGANS 09/23/2014 WHITE HAYDESRUDI J 465.9 ACUTE UPPER RESPIRATORY INFECTIONS OF UNSPECIFIED SITE 09/23/2014 WHITE DDSRUDI J 625.8 OTHER SPECIFIED SYMPTOMS ASSOCIATED WITH FEMALE GENITAL ORGANS 09/30/2014 JOHN ABRAMS APRN R 487.1 INFLUENZA 09/30/2014 RUDI SUTTON DDS 487.1 INFLUENZA Procedures Code Description [place] [address] URINE TEST (IN-HOUSE) 01/19/2013 05958 GC/CHLAM URINE (STATE) 01/20/2013 78841 STREP A (IN-HOUSE) 01/28/2013 73358 UA W/ CULTURE IF INDICATED 08/21/2013 60301 URINE TEST (IN-HOUSE) 08/21/2013 95546 TEST, URINE (IN-HOUSE) 01/14/2014 13705 UA W/ CULTURE IF INDICATED 01/14/2014 30550 CULTURE URINE 01/2014 49559 TEST, URINE (IN-HOUSE) 04/22/2014 31794 GC/CHLAM URINE (STATE) 04/23/2014 81065 UA W/ CULTURE IF INDICATED 09/23/2014 29630 INFLUENZA A & B (IN-HOUSE) 09/23/2014 40534 CULTURE URINE 73753 INFLUENZA A & B (IN-HOUSE) 09/30/2014 Results Encounters ACCT No. Visit Date/Time Discharge Status Pt. Type Provider Facility Loc./Unit Complaint [id number] 01/03/2015 13:54:00 01/03/2015 23: 59:59 CLS Outpatient RUDI SUTTON DDS [id number] 09/30/2014 15:13:00 09/30/2014 23: 59:59 CLS Outpatient JOHN ABRAMS APRN [id number] 09/23/2014 13:47:00 09/23/2014 23: 59:59 CLS Outpatient BRANDON CARDENAS DO [id number] 05/19/2014 15:39:00 05/19/2014 23: 59:59 CLS Outpatient JOHN ABRAMS APRN [id number] 04/22/2014 17:46:00 04/22/2014 23: 59:59 CLS Outpatient DEREK NAIK APRN [id number] 01/14/2014 13:30:00 01/14/2014 23: 59:59 CLS Outpatient DEREK NAIK APRN [id number] 09/30/2013 11:55:00 09/30/2013 23: 59:59 CLS Outpatient DEREK NAIK APRN [id number] 08/21/2013 12:42:00 08/21/2013 23: 59:59 CLS Outpatient JOHN ABRAMS APRN [id number] 01/19/2013 10:45:00 01/19/2013 23: 59:59 CLS Outpatient [id number] 04/30/2013 13:43:00 Document Registration [id number] 01/28/2013 13:01:00 Document Registration
--- OUTSIDE RECORDS SUMMARY | 2017-01-22 19:48 | XMS REPORT ---
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 [employer] Name Role Phone BRANDON CARDENAS CP Unavailable Allergies No Known Allergies Problems Problem Type Condition ICD-9 Code Onset Dates Condition Status Problem Constipation 564.00 Active Problem Urinary tract infection 599.0 Active Problem Abdominal pain 789.00 Active Assessment Encounter for Depo-Provera contraception V25.49 Active Medications No Known Medications Procedures Procedure Coding System Code Date DEPO PROVERA (150 MG/ML) CPT-4 J1050 Jun 29, 2015 THER/PROPH/DIAG INJ, SC/IM CPT-4 87905 Jun 29, 2015 URINE TEST CPT-4 15822 Jun 29, 2015 Results No Known Results Summary Purpose eClinicalWorks Submission
== END 2017-01-08 04:24 | disposition home or self-care (01) ==
LOC: EDUNIT# 03:31 → ER 03:35
DX: O23.591 Infection of other part of genital tract in pregnancy, first trimester (principal); O23.41 Unspecified infection of urinary tract in pregnancy, first trimester; Z3A.08 8 weeks gestation of pregnancy
CPT/HCPCS: 36415; 81000; 84703; 87070; 87088; 87210; 87491; 87591; 99285

== ENCOUNTER 2017-03-08 12:49 | Emergency (ER) | payer MEDICAID ==
[~2017-03-08] VITALS: Ht 160 cm; Wt 77.1 kg
[~2017-03-08 12:49] MED LIST changes: +NITR-65 PO; +PREN-37 PO
[2017-03-08 13:32] LABS: BILIRUBIN,URINE NEGATIVE (NEGATIVE); KETONES,URINE 2+ (NEGATIVE); LEUKOCYTE ESTERASE ,URINE NEGATIVE (NEGATIVE); NITRITE,URINE NEGATIVE (NEGATIVE); PH,URINE 6 (5-9); PROTEIN,URINE NEGATIVE (NEGATIVE); UROBILINOGEN,URINE NORMAL (NORMAL)
[2017-03-08 13:44] LABS: WBC,URINE RARE /HPF
[2017-03-08 13:53] LABS: BASOPHILS % (AUTO) 0 % (0-10); EOSINOPHILS # (AUTO) 0.1 10^3/uL (0.0-0.3); EOSINOPHILS % (AUTO) 1 % (0-10); LYMPHOCYTES # (AUTO) 2.2 X 10^3 (1.0-4.0); LYMPHOCYTES % (AUTO) 21 % (12-44); MEAN CORPUSCULAR HEMOGLOBIN 31 PG (25-34); MEAN CORPUSCULAR HGB CONC 35 G/DL (32-36); MEAN CORPUSCULAR VOLUME 88 FL (80-99); MEAN PLATELET VOLUME 9.8 FL (7.4-10.4); MONOCYTES # (AUTO) 0.5 X 10^3 (0.0-1.0); MONOCYTES % (AUTO) 5 % (0-12); NEUTROPHILS # (AUTO) 7.6 X 10^3 (1.8-7.8); NEUTROPHILS % (AUTO) 73 % (42-75); PLATELET COUNT 273 10^3/uL (130-400); RED BLOOD COUNT 4.24 10^6/uL (4.35-5.85); RED CELL DISTRIBUTION WIDTH 12.8 % (10.0-14.5); WHITE BLOOD COUNT 10.4 10^3/uL (4.3-11.0)
[2017-03-08 14:14] LABS: ALANINE AMINOTRANSFERASE 29 U/L (0-55); ALBUMIN 3.6 G/DL (3.2-4.5); ANION GAP 8 MMOL/L (5-14); ASPARTATE AMINO TRANSFERASE 24 U/L (5-34); BILIRUBIN,TOTAL 0.5 MG/DL (0.1-1.0); BLOOD UREA NITROGEN 7 MG/DL (7-18); BUN/CREATININE RATIO 11; CALCIUM 9.1 MG/DL (8.5-10.1); CARBON DIOXIDE 23 MMOL/L (21-32); CHLORIDE 105 MMOL/L (98-107); CREATININE SERUM 0.66 MG/DL (0.60-1.30); GFR ESTIMATED > 60; GLUCOSE 90 MG/DL (70-105); POTASSIUM 3.5 MMOL/L (3.6-5.0); SODIUM 136 MMOL/L (135-145); TOTAL PROTEIN 6.7 G/DL (6.4-8.2)
--- NOTE | 2017-03-08 14:44 | ED Abdominal Pain ---
General Chief Complaint: Abdominal/GI Problems Stated Complaint: VOMITING 17 WKS PREG Nursing Triage Note: Pt vomited twice after eating and was concerned about small specks of blood in her emesis. Sepsis Screen: No Definite Risk Source of Information: Patient Exam Limitations: No Limitations History of Present Illness Time Seen By Provider: 14:40 Initial Comments The patient is a 26-year-old white female who presents with complaints of vomiting. The emesis has been mixed with small amounts of blood on occasion. She is 17 weeks . This is her third child. She reports that the first 2 pregnancies have been much easier than this one. She has no observation of black tarry stools or lightheadedness. Timing/Duration: 4-6 Hours Severity/Quality: Mild Allergies and Home Medications Allergies Coded Allergies: NKANo Known Allergies (Verified Allergy, Unknown, 06/11/08) Home Medications Nitrofurantoin Monohyd/M-Cryst 100 Mg Capsule, 100 MG PO BID, #20 Prescribed by: FREDDIE GONCALVES on 01/08/17 0421 Vit/Iron Fumarate/FA 1 Each Tablet, 1 EACH PO DAILY, (Reported) Review of Systems Constitutional: see HPI EENTM: No Symptoms Reported Respiratory: No Symptoms Reported Cardiovascular: No Symptoms Reported Gastrointestinal: Vomiting, Other Genitourinary: No Symptoms Reported Musculoskeletal: no symptoms reported Skin: no symptoms reported Psychiatric/Neurological: No Symptoms Reported Endocrine: No Symptoms Reported Hematologic/Lymphatic: No Symptoms Reported Past Qocihld-Dmfqea-Wdvkfg Hx Patient Social History Alcohol Use: Denies Use Recreational Drug Use: No Smoking Status: Never a Smoker Type Used: Cigarettes 2nd Hand Smoke Exposure: No Recent Foreign Travel: No Contact w/Someone Who Travel: No Recent Infectious Disease Expo: No Recent Hopitalizations: No Immunizations Up To Date Tetanus Booster (TDap): Unknown PED Vaccines UTD: Yes Date of Influenza Vaccine: Dec 20, 2016 Seasonal Allergies Seasonal Allergies: No Surgeries HX Surgeries: Yes (skull surgery at 10 months of age) Surgeries: Appendectomy Respiratory Hx Respiratory Disorders: No Cardiovascular Hx Cardiac Disorders: No Neurological Hx Neurological Disorders: No Reproductive System Hx Reproductive Disorders: No Sexually Transmitted Disease: Yes Female Reproductive Disorders: Denies Genitourinary Hx Genitourinary Disorders: No (UTI- February 2016) Gastrointestinal Hx Gastrointestinal Disorders: No Musculoskeletal Hx Musculoskeletal Disorders: Yes (had skull surgery fpr fused suture at 10 months of age) Endocrine Hx Endocrine Disorders: No HEENT HX ENT Disorders: No Cancer Hx Cancer: No Psychosocial Hx Psychiatric Problems: No Integumentary HX Skin/Integumentary Disorder: No Blood Transfusions Hx Blood Disorders: No Family Medical History Significant Family History: No Pertinent Family Hx Physical Exam Vital Signs VS - Last 72 Hours, by Label 03/08/17 13:10 Temp 98.1 Pulse 70 Resp 16 B/P (MAP) 126/73 Pulse Ox 98 O2 Delivery Room Air Capillary Refill : Less Than 3 Seconds General Appearance: WD/WN, no apparent distress HEENT: normal ENT inspection Neck: full range of motion Cardiovascular: normal peripheral pulses, regular rate, rhythm, no edema, no gallop, no JVD, no murmur Gastrointestinal: normal bowel sounds, non tender, soft, no organomegaly, no pulsatile mass Progress/Results/Core Measures Results/Orders Lab Results Laboratory Tests Test 03/08/17 13:10 03/08/17 13:45 Range/Units Urine Color YELLOW Urine Clarity CLEAR Urine pH 6 5-9 Urine Specific [place] 1.015 L 1.016-1.022 Urine Protein NEGATIVE NEGATIVE Urine Glucose (UA) NEGATIVE NEGATIVE Urine Ketones 2+ H NEGATIVE Urine Nitrite NEGATIVE NEGATIVE Urine Bilirubin NEGATIVE NEGATIVE Urine Urobilinogen NORMAL NORMAL MG/DL Urine Leukocyte Esterase NEGATIVE NEGATIVE Urine RBC (Auto) NEGATIVE NEGATIVE Urine RBC NONE /HPF Urine WBC RARE /HPF Urine Squamous Epithelial Cells 10-25 H /HPF Urine Crystals NONE /LPF Urine Bacteria TRACE /HPF Urine Casts NONE /LPF Urine Mucus MODERATE H /LPF Urine Culture Indicated NO White Blood Count 10.4 4.3-11.0 10^3/uL Red Blood Count 4.24 L 4.35-5.85 10^6/uL Hemoglobin 13.1 11.5-16.0 G/DL Hematocrit 37 35-52 % Mean Corpuscular Volume 88 80-99 FL Mean Corpuscular Hemoglobin 31 25-34 PG Mean Corpuscular Hemoglobin Concent 35 32-36 G/DL Red Cell Distribution Width 12.8 10.0-14.5 % Platelet Count 273 130-400 10^3/uL Mean Platelet Volume 9.8 7.4-10.4 FL Neutrophils (%) (Auto) 73 42-75 % Lymphocytes (%) (Auto) 21 12-44 % Monocytes (%) (Auto) 5 0-12 % Eosinophils (%) (Auto) 1 0-10 % Basophils (%) (Auto) 0 0-10 % Neutrophils # (Auto) 7.6 1.8-7.8 X 10^3 Lymphocytes # (Auto) 2.2 1.0-4.0 X 10^3 Monocytes # (Auto) 0.5 0.0-1.0 X 10^3 Eosinophils # (Auto) 0.1 0.0-0.3 10^3/uL Basophils # (Auto) 0.0 0.0-0.1 10^3/uL Sodium Level 136 135-145 MMOL/L Potassium Level 3.5 L 3.6-5.0 MMOL/L Chloride Level 105 98-107 MMOL/L Carbon Dioxide Level 23 21-32 MMOL/L Anion Gap 8 5-14 MMOL/L Blood Urea Nitrogen 7 7-18 MG/DL Creatinine 0.66 0.60-1.30 MG/DL Estimat Glomerular Filtration Rate > 60 BUN/Creatinine Ratio 11 Glucose Level 90 70-105 MG/DL Calcium Level 9.1 8.5-10.1 MG/DL Total Bilirubin 0.5 0.1-1.0 MG/DL Aspartate Amino Transf (AST/SGOT) 24 5-34 U/L Alanine Aminotransferase (ALT/SGPT) 29 0-55 U/L Alkaline Phosphatase 30 L 40-136 U/L Total Protein 6.7 6.4-8.2 G/DL Albumin 3.6 3.2-4.5 G/DL My Orders Orders - IVETTE VERONICA MD Cbc With Automated Diff (03/08/17 13:18) Comprehensive Metabolic Panel (03/08/17 13:18) Ua Culture If Indicated (03/08/17 13:18) Vital Signs/I&O Vital Sign - Last 12Hours 03/08/17 13:10 Temp 98.1 Pulse 70 Resp 16 B/P (MAP) 126/73 Pulse Ox 98 O2 Delivery Room Air Blood Pressure Mean: 90 Departure Communication Progress Notes The patient was assured that streaks blood in vomitus is not uncommon. She was advised that she would be allowed to take Tums or Rolaids. Impression Impression: Primary Impression: vomiting, suspect hyperemesis of Disposition: 01 HOME, SELF-CARE Condition: Stable/Unchanged Departure-Patient Inst. Decision time for Depature: 14:43 Referrals: [facility] (PCP/Family) Primary Care Physician Patient Instructions: Nausea and Vomiting of (DC) IVETTE VERONICA MD March 08, 2017 14:44
[2017-03-08 14:55] VITALS: BP 124/70
== END 2017-03-08 14:55 | disposition home or self-care (01) ==
LOC: EDUNIT# 12:49 → ER 12:53
DX: O99.612 Diseases of the digestive system complicating pregnancy, second trimester (principal); R11.10 Vomiting, unspecified; Z3A.17 17 weeks gestation of pregnancy
CPT/HCPCS: 36415; 80053; 81000; 85025; 99285

== ENCOUNTER → 2017-04-08 | Outpatient (CLI) | payer MEDICAID ==
--- NOTE | 2017-04-08 13:37 | Diagnostic Imaging Report ---
INDICATION: Undergoing anatomical evaluation. Feels lump at left lower quadrant. TECHNIQUE: Multiple real-time grayscale images were obtained over the gravid uterus. COMPARISON: None FINDINGS: There is presence of single viable intrauterine , currently with the head to the maternal left. Normal amount of amniotic fluid. Anterior placenta is present. There is what appears to be presence of a placenta previa. Cervical length is 4.3 cm. Visualized anatomical structures are unremarkable. However, the spine cannot be visualized given positioning. Biometrical measurements are as follows: Biparietal 5.38 cm, age 22 weeks 3 days. Head circumference 20.21 cm, age 22 weeks 3 days. Abdominal circumference 17.45 cm, age 22 weeks 3 days. Femur length 3.69 cm, age 21 weeks 6 days. Sonographic estimate age: 22 weeks 1 days. Sonographic estimated date of delivery: 08/10/2017. Estimated Weight: 478 gm (+/- 70 gm). LMP percentile: 66%. heart rate: 149 beats per minute. number: 1 of 1. Imaging of the left lower quadrant demonstrates no definitive sonographic abnormality. IMPRESSION: Single viable intrauterine , currently in a transverse position. Estimated age is 22 weeks 2 days for an estimated date of delivery of August 10, 2017. No abnormality is noted at this time. Dictated by: Dictated on workstation # [id number]
== END ==
LOC: RAD 10:06
PROVIDERS: ATTEND Obstetrics & Gynecology
DX: Z36 Encounter for antenatal screening of mother (principal); Z3A.22 22 weeks gestation of pregnancy
CPT/HCPCS: 76805

== ENCOUNTER 2017-07-06 19:56 | Outpatient (CLI) | payer MEDICAID ==
[~2017-07-06] VITALS: Ht 162.6 cm; Wt 105.2 kg
[2017-07-06 20:15] LABS: BILIRUBIN,URINE NEGATIVE (NEGATIVE); KETONES,URINE NEGATIVE (NEGATIVE); LEUKOCYTE ESTERASE ,URINE 2+ (NEGATIVE); NITRITE,URINE NEGATIVE (NEGATIVE); PH,URINE 6.5 (5-9); PROTEIN,URINE 1+ (NEGATIVE); UROBILINOGEN,URINE 1 MG/DL (NORMAL)
[2017-07-06 20:18] VITALS: BP 112/66
[2017-07-06 20:21] LABS: SQUAMOUS EPITHELIAL CELL,UR >50 /HPF
[2017-07-06] MEDS ORDERED: NS IV 1000 ML 1,000 ML IV ONE (21:45)
[2017-07-06] MEDS: D5 LR IV SOLUTION 1,000 ML IV SCH (22:00)
[2017-07-06 22:17] LABS: BILIRUBIN,URINE NEGATIVE (NEGATIVE); KETONES,URINE NEGATIVE (NEGATIVE); LEUKOCYTE ESTERASE ,URINE 1+ (NEGATIVE); NITRITE,URINE NEGATIVE (NEGATIVE); PH,URINE 7 (5-9); PROTEIN,URINE NEGATIVE (NEGATIVE); UROBILINOGEN,URINE NORMAL (NORMAL)
[2017-07-06 22:25] LABS: WBC,URINE 0-2 /HPF
[2017-07-06] MEDS ORDERED: TERBUTALINE INJ 1 MG/ML (BRETHINE) AMP SC ONE (23:15)
[2017-07-06] MEDS ORDERED: morphine INJ 10 MG/ML 1ML (SYR OR VIAL) IVP ONE (23:15)
[2017-07-07] MEDS ORDERED: morphine INJ 10 MG/ML 1ML (SYR OR VIAL) IVP PRN (01:30)
[2017-07-07 06:00] VITALS: BP 102/56
[2017-07-07] MEDS: D5 LR IV SOLUTION 1,000 ML IV SCH (06:03)
[2017-07-07 08:40] VITALS: BP 109/64
[2017-07-07] MEDS ORDERED: ACETAMINOPHEN 500 MG TAB (TYLENOL) PO NR (09:45)
--- NOTE | 2017-07-07 10:46 | Diagnostic Imaging Report ---
INDICATION: Contractions, assessment for presentation. TECHNIQUE: Multiple, limited real-time grayscale images were obtained of the gravid uterus. CORRELATION STUDY: None FINDINGS: Limited obstetrical sonogram imaging demonstrates a cephalic presentation of the fetus. The amount of amniotic fluid appears to be within normal limits. The placenta appears to be anterior without previa. cardiac activity 133 beats per minute. IMPRESSION: 1. Limited obstetrical sonogram imaging demonstrates cephalic presentation. Dictated by: Dictated on workstation # [id number]
--- NOTE | 2017-07-07 13:16 | Short Stay Summary ---
History of Present Illness History of Present Illness Reason for visit/HPI contractions at 33 weeks. Date of Admission 07/06/17 Date of Discharge 07/07/17 Time Seen by Provider: 08:20 Attending Physician Cely Graves DO Admitting Physician Allie,Local Physician Consult Patient was admitted due to contractions every 2-4 minutes. Cervix was 2 cm dilated. She had a small amount of cervical change after 2 hours. IV fluid bolus given with some improvement but continued contractions. Kept overnight for observation. Given terbutaline x 1 and 5 m IV morphine that slowed contractions greatly. There was no bleeding, good movement and no leakage of fluid. on the , there were few contractions. Due to suspicion for breech presentation, us was done. Confirmed vertex. Once this was done, patient was discharged with labor instructions and follow up information. Allergies and Home Medications Allergies Coded Allergies: GILDAANo Known Allergies (Verified Allergy, Unknown, 06/11/08) Home Medications Acetaminophen with Codeine 1 Each Tablet, 1 TAB PO Q4H PRN for PAIN-MILD, #30 Prescribed by: DAYANA ZACARIAS on 08/05/17 075 Benzocaine/Menthol 56 Gm Aerosol, 56 ML TP UD PRN for PAIN- SEE INSTRUCTIONS, #1 Prescribed by: DAYANA ZACARIAS on 08/05/17 075 Docusate Sodium 100 Mg Capsule, 100 MG PO BID PRN for CONSTIPATION-1ST LINE, #40 Prescribed by: DAYANA ZACARIAS on 08/05/17 075 Ferrous Sulfate 325 Mg Tablet, 325 MG PO DAILY, #60 Prescribed by: DAYANA ZACARIAS on 08/05/17 075 Ibuprofen 600 Mg Tablet, 600 MG PO Q6H, #80 Prescribed by: DAYANA ZACARIAS on 08/05/17 075 Vit/Iron Fumarate/FA 1 Each Tablet, 1 EACH PO DAILY, (Reported) Past Zdtxodm-Yptxoo-Tegmqh Hx Patient Social History Smoking Status: Former Smoker Former Smoker, Quit: Dec 06, 2010 Type Used: Cigarettes 2nd Hand Smoke Exposure: No Physical Abuse Screen: No Sexual Abuse: No Recent Foreign Travel: No Contact w/other who traveled: No Recent Hopitalizations: No Recent Infectious Disease Expo: No Immunizations Up To Date Tetanus Booster (TDap): Unknown Pediatric: Yes Date of Influenza Vaccine: Dec 20, 2016 Seasonal Allergies Seasonal Allergies: No Surgeries Yes (skull surgery at 10 months of age) Appendectomy Respiratory No Cardiovascular No Neurological No Reproductive System Expected Date of Delivery: Aug 14, 2017 Hx : 3 Hx Para: 2 Hx Reproductive Disorders: No Sexually Transmitted Disease: Yes Female Reproductive Disorders: Denies Gastrointestinal No Musculoskeletal Yes (had skull surgery fpr fused suture at 10 months of age) Endocrine History of Endocrine Disorders: No Cancer No Psychosocial History of Psychiatric Problem: No Integumentary History of Skin or Integumenta: No Blood Transfusions History of Blood Disorders: No Family Medical History Significant Family History: No Pertinent Family Hx Constitutional: no symptoms reported Physical Exam Vital Signs Vital Sign - Last 12Hours 07/06/17 20:18 Temp 98.3 Pulse 100 Resp 18 B/P (MAP) 112/66 Capillary Refill : General Appearance: WD/WN Respiratory: Chest Non Tender Cardiovascular: Regular Rate, Rhythm Rectal: Other (2-3 cm dilated. Good well being. ) Short Stay Diagnosis Discharge Diagnosis-Short Stay Admission Diagnosis: contractions Final Discharge Diagnosis: contractions Threatened labor Conclusion Labs Laboratory Tests 07/06/17 20:00: Urine Color YELLOW, Urine Clarity VERY CLOUDYH, Urine pH 6.5, Urine Specific [place] 1.020, Urine Protein 1+H, Urine Glucose (UA) NEGATIVE, Urine Ketones NEGATIVE, Urine Nitrite NEGATIVE, Urine Bilirubin NEGATIVE, Urine Urobilinogen 1 , Urine Leukocyte Esterase 2+H, Urine RBC (Auto) NEGATIVE, Urine RBC NONE, Urine WBC 5-10H, Urine Squamous Epithelial Cells >50H, Urine Crystals NONE, Urine Bacteria FEWH, Urine Casts NONE, Urine Mucus NEGATIVE, Urine Culture Indicated YES 07/06/17 22:05: Urine Color YELLOW, Urine Clarity CLEAR, Urine pH 7, Urine Specific [place] 1.010L, Urine Protein NEGATIVE, Urine Glucose (UA) NEGATIVE, Urine Ketones NEGATIVE, Urine Nitrite NEGATIVE, Urine Bilirubin NEGATIVE, Urine Urobilinogen NORMAL, Urine Leukocyte Esterase 1+H, Urine RBC (Auto) 1+H, Urine RBC 0-2, Urine WBC 0-2, Urine Squamous Epithelial Cells 5-10, Urine Crystals NONE, Urine Bacteria NONE, Urine Casts NONE, Urine Mucus NEGATIVE, Urine Culture Indicated NO Conclusion/Plan discharged to home with instructions CELY MALONEY DO Jul 07, 2017 13:16
--- NOTE | 2017-07-07 13:23 | Discharge Inst-Women's Service ---
Discharge Inst-Women's Serv Depart Medication/Instructions New, Converted or Re-Newed RX: Other Final Diagnosis contractions, third trimester Consults/Follow Up Additional Follow Up: Yes Activity Activity: Activity as Tolerated Driving Instructions: You May Drive NO SMOKING: NO SMOKING Nothing Inside Vagina: No Douching, No [place], No Tampons Diet Discharge Diet: No Restrictions Symptoms to Report to : Pain Increased, Fever Over 101 Degrees F, Vaginal Bleeding Increase, Vaginal Discharge Foul For Any Problems or Questions: Contact Your Physician OLIVIA MALONEY DO Jul 07, 2017 13:23
--- NOTE | 2017-07-08 14:13 | Physician Query-Final Dx ---
KEVIN LEMOS 07/08/17 1413: Clinic Account Progress/Dx Physician Query: Please give diagnosis Date of Service Jul 06, 2017 at 19:56 OLIVIA MALONEY DO 08/07/17 0614: Clinic Account Progress/Dx DIAGNOSIS: Diagnosis labor 33 weeks KEIVN LEMOS Jul 08, 2017 14:13 OLIVIA MALONEY DO Aug 07, 2017 06:14
[2017-08-05] MEDS ORDERED: BENZ56AE2 TP (07:53)
[2017-08-05] MEDS ORDERED: DOCU100C37 PO (07:53)
[2017-08-05] MEDS ORDERED: IBUP-1773 PO (07:53)
[2017-08-05] MEDS ORDERED: FERR-74 PO (07:53)
[2017-08-05] MEDS ORDERED: ACET1TAB43 PO (07:53)
== END 2017-07-07 13:45 | disposition home or self-care (01) ==
LOC: WSo 19:56 → LDRP 19:56 → WSo 07-07 13:45
PROVIDERS: ATTEND Obstetrics & Gynecology
DX: O60.03 Preterm labor without delivery, third trimester (principal); Z3A.33 33 weeks gestation of pregnancy
CPT/HCPCS: 76815; 81000; 87088; 96361; 96372; 96374; 96376; 99214

== ENCOUNTER 2017-07-08 17:26 | Outpatient (CLI) | payer MEDICAID ==
[~2017-07-08] VITALS: Ht 154.9 cm; Wt 78.9 kg
[2017-07-08 17:15] VITALS: BP 114/73
[2017-07-08] MEDS ORDERED: NS IV 1000 ML 1,000 ML IV ONE (18:00)
[2017-07-08] MEDS ORDERED: CATHETER FLUSH 10 ML SYR IV PRN (18:00)
[2017-07-08] MEDS: D5 LR IV SOLUTION 1,000 ML IV SCH (19:15)
[2017-07-08] MEDS ORDERED: AMPICILLIN INJECTION 2,000 MG in NS (IVPB) 50 ML IV SCH (19:22)
[2017-07-08 19:32] VITALS: BP 142/88
[2017-07-08 21:56] VITALS: BP 118/59
[2017-07-08] MEDS ORDERED: morphine INJ 10 MG/ML 1ML (SYR OR VIAL) IVP PRN (22:00)
[2017-07-08] MEDS: AMPICILLIN INJECTION 1,000 MG in NS (IVPB) 50 ML IV SCH (23:50)
[2017-07-09 01:59] VITALS: BP 90/53
[2017-07-09] MEDS: AMPICILLIN INJECTION 1,000 MG in NS (IVPB) 50 ML IV SCH ×2 (04:00→08:00)
[2017-07-09] MEDS: D5 LR IV SOLUTION 1,000 ML IV SCH (04:40)
[2017-07-09 07:55] VITALS: BP 109/64
--- NOTE | 2017-07-09 09:56 | Discharge Inst-Women's Service ---
Discharge Inst-Women's Serv Depart Medication/Instructions Final Diagnosis contractions, third trimester, not delivered History of delivery Consults/Follow Up Additional Follow Up: Yes (07/15/17 at 1:45) Activity Activity: Bedrest (modifed, off work) Driving Instructions: No Driving/Refer to Dr. HAWK SMOKING: NO SMOKING Nothing Inside Vagina: No Douching, No [place], No Tampons Diet Discharge Diet: No Restrictions Symptoms to Report to : Eyesight Changes, Fever Over 101 Degrees F, Vaginal Bleeding Increase, Cramps in Feet or Legs, Vaginal Discharge Foul For Any Problems or Questions: Contact Your Physician OLIVIA MALONEY DO Jul 09, 2017 09:56
--- NOTE | 2017-07-22 12:06 | Physician Query-Final Dx ---
CHANTE COFFEY 07/22/17 1206: Clinic Account Progress/Dx Physician Query: Please give diagnosis Date of Service Jul 08, 2017 at 17:26 OLIVIA MALONEY DO 08/07/17 0703: Clinic Account Progress/Dx DIAGNOSIS: Diagnosis Threatened labor CHANTE COFFEY Jul 22, 2017 12:06 OLIVIA MALONEY DO Aug 07, 2017 07:03
[2017-08-05] MEDS ORDERED: DOCU100C37 PO (07:53)
[2017-08-05] MEDS ORDERED: BENZ56AE2 TP (07:53)
[2017-08-05] MEDS ORDERED: ACET1TAB43 PO (07:53)
[2017-08-05] MEDS ORDERED: FERR-74 PO (07:53)
[2017-08-05] MEDS ORDERED: IBUP-1773 PO (07:53)
== END 2017-07-09 10:38 | disposition home or self-care (01) ==
LOC: LDRP 17:26 → WSo 17:26
PROVIDERS: ATTEND Obstetrics & Gynecology
DX: O47.03 False labor before 37 completed weeks of gestation, third trimester (principal); Z3A.34 34 weeks gestation of pregnancy
CPT/HCPCS: 96361; 96374; 96376; 99214

== ENCOUNTER 2017-07-26 13:15 | Outpatient (CLI) | payer MEDICAID ==
[~2017-07-26] VITALS: Ht 154.9 cm; Wt 79.8 kg
[2017-07-26 13:20] VITALS: BP 140/91
[2017-07-26 13:40] VITALS: BP 118/80
[2017-07-26] MEDS ORDERED: INFLUENZA TRIvalent 2017-2018 0.5 ML/45 MCG SYR IM ONE (13:45)
[2017-07-26 13:49] LABS: BILIRUBIN,URINE NEGATIVE (NEGATIVE); KETONES,URINE 1+ (NEGATIVE); LEUKOCYTE ESTERASE ,URINE 2+ (NEGATIVE); NITRITE,URINE NEGATIVE (NEGATIVE); PH,URINE 8 (5-9); PROTEIN,URINE NEGATIVE (NEGATIVE); UROBILINOGEN,URINE NORMAL (NORMAL)
[2017-07-26] MEDS ORDERED: GLYCERIN ADULT SUPPOSITORY PR NR (14:30)
--- NOTE | 2017-07-29 16:03 | Physician Query-Final Dx ---
KEVIN LEMOS 07/29/17 4:03pm: Clinic Account Progress/Dx Physician Query: Please give diagnosis Date of Service Jul 26, 2017 at 13:15 OLIVIA MALONEY DO 07/30/17 10:51am: Clinic Account Progress/Dx DIAGNOSIS: Diagnosis threatened labor at term (37 weeks) History of labor current KEVIN LEMOS Jul 29, 2017 4:03 pm OLIVIA MALONEY DO Jul 30, 2017 10:51 am
== END 2017-07-26 14:40 | disposition home or self-care (01) ==
LOC: WSo 13:15 → LDRP 13:16 → WSo 14:40
PROVIDERS: ATTEND Obstetrics & Gynecology
DX: O09.213 Supervision of pregnancy with history of pre-term labor, third trimester (principal); O47.1 False labor at or after 37 completed weeks of gestation; Z3A.37 37 weeks gestation of pregnancy
CPT/HCPCS: 81000; 87088; 99213

== ENCOUNTER 2017-08-03 23:26 | Inpatient (IN) | payer MEDICAID ==
[~2017-08-03] VITALS: Ht 154.9 cm; Wt 79.4 kg
[2017-08-03] MEDS ORDERED: OXYTOCIN/NORMAL SALINE 500 ML IV ONE (23:38)
[2017-08-03] MEDS ORDERED: D5 LR IV SOLUTION 1,000 ML IV ONE (23:38)
[2017-08-03] MEDS ORDERED: LIDOCAINE/EPI 2% 1:200,00 (XYLOCAINE) 10 ML VIAL ONE (23:38)
[2017-08-03 23:40] VITALS: BP 118/74
[2017-08-03] MEDS ORDERED: NS (IVPB) 50 ML ONE (23:43)
[2017-08-03] MEDS ORDERED: AMPICILLIN 2000 MG INJECTION (IM/IV) ONE (23:43)
[2017-08-04] VITALS (8 sets, daily range): BP systolic 97–123; BP diastolic 50–85
[2017-08-04] MEDS ORDERED: AMPICILLIN INJECTION 2,000 MG in NS (IVPB) 50 ML IV SCH (00:06)
[2017-08-04] MEDS ORDERED: D5 LR IV SOLUTION 1,000 ML IV SCH (00:06)
[2017-08-04 00:23] LABS: BASOPHILS % (AUTO) 0 % (0-10); EOSINOPHILS % (AUTO) 0 % (0-10); LYMPHOCYTES # (AUTO) 2.3 X 10^3 (1.0-4.0); LYMPHOCYTES % (AUTO) 12 % (12-44); MEAN CORPUSCULAR HEMOGLOBIN 31 PG (25-34); MEAN CORPUSCULAR HGB CONC 35 G/DL (32-36); MEAN CORPUSCULAR VOLUME 89 FL (80-99); MEAN PLATELET VOLUME 10.7 FL (7.4-10.4); MONOCYTES % (AUTO) 5 % (0-12); NEUTROPHILS # (AUTO) 15.6 X 10^3 (1.8-7.8); NEUTROPHILS % (AUTO) 83 % (42-75); PLATELET COUNT 242 10^3/uL (130-400); RED BLOOD COUNT 4.07 10^6/uL (4.35-5.85); RED CELL DISTRIBUTION WIDTH 12.3 % (10.0-14.5); WHITE BLOOD COUNT 18.9 10^3/uL (4.3-11.0)
--- NOTE | 2017-08-04 01:14 | History & Physical-OB ---
OB - Chief Complaint & HPI Date/Time Date of Admission: Date of Admission: Aug 04, 2017 at 12:01 am Time Seen by Provider: 00:15 Chief Complaint/History OB-Reason for Admission/Chief: Onset of Labor Hx : 3 Hx Para: 2 Expected Date of Delivery: Aug 14, 2017 Gestational Age in Weeks: 38 Gestational Age in Days: 4 Admission Nurse Assessment Rev: Yes History of Labs A pos Antibody neg RI RPR NR HBsAg NR HIV NR GC neg GBS + urine culture Allergies and Home Medications Allergies Coded Allergies: NKANo Known Allergies (Verified Allergy, Unknown, 06/11/08) Home Medications Vit/Iron Fumarate/FA 1 Each Tablet, 1 EACH PO DAILY, (Reported) OB - History Hx of Present Care: Yes Ultrasounds: Normal mid trimester US Obstetrical Complications: None Medical Complications: None Obstetrical History Hx Termination: No Hx Multiple Gestation: No Hx Stillbirth: No Hx Complication: Yes (induced at 35 weeks for pneumonia and low heart rate) Hx Induced Hypertens: No Hx Maternal Gestational Diabet: No Delivery History Hx Dystocia: No Hx Large For Gestational Age I: No Hx Small for Gestational Age I: No Hx Section: No Hx Vaginal Delivery Post C-Sec: No Hx Blood Disorders: No Patient Past Medical History n/a Social History/Family History Recent Infectious Disease Expo: No Sexually Transmitted Disease: Yes 2nd Hand Smoke Exposure: No Immunizations Tetanus Booster (TDap): Unknown Date of Influenza Vaccine: Dec 20, 2016 OB - Admission Exam Physical Exam HEENT: NCAT Heart: Rhythm Normal Lungs: Clear Abdomen: Gravid Extremities: Normal Reflexes: Normal Cervical Dilatation: 10cm Effacement: 100% Station: -1 Membranes: Intact Heart Rate: 130's Accelerations: Accelerations Present Decelerations: No Decelerations 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
[2017-08-04] MEDS ORDERED: OXYTOCIN/NORMAL SALINE 500 ML IV SCH (01:18)
--- NOTE | 2017-08-04 01:18 | OB Labor & Delivery Record ---
L&D History Date of Service Date of Service: Aug 04, 2017 History Expected Date of Delivery: Aug 14, 2017 Gestational Age in Weeks: 38 Hx : 3 Hx Para: 2 Complications Events: Routine care Operative Indications (Cesarea: N/A-Vaginal Delivery Intrapartal Events: None, Precipitous Labor < 3 hrs L&D Stage1 Stage One Onset of Labor - Date: Aug 04, 2017 Duration - Stage I: N/A- patient presented complete Rupture of Membranes Spontaneous Ruture of Membrane: No Amniotic Membrane Rupture Time: 12:30 Amniotic Membrane Fluid Desc.: Clear Vaginal Bleeding Description: Normal Show Progress/Notes Patient presented complete, and -1 station with bulging membranes. 2 gm Amp was given but patient without analgesia began inadvertently pushing and I was called for delivery. When I presented, AROM was performed and patient began pushing without direction from myself or nursing L&D Stage2 Stage Two Stage II Date: Aug 04, 2017 Monitors and Tracing Monitor Mode: External Monitor Accelerations: Uniform Monitor Decelerations: Variable Penitentiary Variability: Average (6-10) Short Term Variability: Present Position: Right Occiput Anterior Presentation: Vertex Cord Descript/Complications Cord Vessel Description: 3 Vessels Delivery Type Infant Delivery Method: Spontaneous Vaginal Anterior Shoulder: Right Episiotomy/Perineal Laceration Laceraction(s)/Extensions: Yes (clitoral laceration repaired using 3-0 rapide vicryl suture) Episiotomy Description: None Condition of Delivery 1 minute Comment: 8 5 minute Comment: 8 Notes live female infant weight 7lbs 7oz Condition of Condition of : Living Exam: No Observed Abnormalities Resuscitation Resuscitation: N/A - Spontaneous Resp L&D Stage3 Stage Three Stage III Date: Aug 04, 2017 Pictocin Pitocin Administration Comment: 30 mu wide open at delivery of placenta Placenta Delivery Placenta Delivery: Spontaneous Delivery Summary Summary Estimated blood loss (mL): 350 Attending at delivery: Dayana Zacarias DO Condition of Delivery Examined: Cervix Examined, Uterus Explored Post Hemorrhage: No Condition of Mother stable Condition of (s) stable DAYANA ZACARIAS DO Aug 04, 2017 1:18 am
--- NOTE | 2017-08-04 01:21 | Discharge Inst-Women's Service ---
Discharge Inst-Women's Serv Depart Medication/Instructions New, Converted or Re-Newed RX: RX on Chart Consults/Follow Up Additional Follow Up: Yes Orders/Referrals Dr. Her in 6 weeks Activity Activity: Activity as Tolerated Driving Instructions: No Driving for 1 Week NO SMOKING: NO SMOKING Nothing Inside Vagina: No Douching, No [place], No Tampons Diet Discharge Diet: No Restrictions Symptoms to Report to : Bleeding Excessive, Pain Increased, Fever Over 101 Degrees F, Vaginal Bleeding Increase, Questions/Concerns For Any Problems or Questions: Contact Your Physician DAYANA ZACARIAS DO Aug 04, 2017 1:21 am
[2017-08-04] MEDS: IBUPROFEN 600 MG (MOTRIN) TAB PO SCH ×4 (01:28→19:59)
[2017-08-04] MEDS ORDERED: MEASLES,MUMPS,RUBELLA 1 EA INJ SQ ONE (01:30)
[2017-08-04] MEDS ORDERED: TETANUS,DIPTH,PERTUSS P/F (BOOSTRIX) 0.5 ML VIAL IM ONE (01:30)
[2017-08-04] MEDS ORDERED: DIBUCAINE (NUPERCAINAL) 1% OINT 30 GM TOP PRN (01:30)
[2017-08-04] MEDS ORDERED: BENZOCAINE/MENTHOL (DERMOPLAST) 56 ML CAN TP PRN (01:30)
[2017-08-04] MEDS ORDERED: WITCH HAZEL(TUCKS) 40 EA JAR TOP PRN (01:30)
[2017-08-04] MEDS ORDERED: APAP 300 MG/CODEINE 30 MG (TYLENOL #3) TAB PO ONE (03:45)
[2017-08-04] MEDS ORDERED: AMPICILLIN INJECTION 1,000 MG in NS (IVPB) 50 ML IV SCH (04:15)
[2017-08-04] MEDS ORDERED: CALCIUM CARBONATE 500 MG (TUMS) TAB.CHEW PO ONE (05:45)
[2017-08-04] MEDS ORDERED: CATHETER FLUSH 10 ML SYR IV SCH ×2 (06:00)
[2017-08-04] MEDS ORDERED: INFLUENZA TRIvalent 2017-2018 0.5 ML/45 MCG SYR IM ONE (07:30)
[2017-08-04] MEDS: PRENATAL VITAMIN 1 EA TAB PO SCH (08:46)
[2017-08-04] MEDS: FERROUS SULF 325 MG (IRON) TAB PO SCH (08:46)
[2017-08-04] MEDS: DOCUSATE SODIUM 100 MG (COLACE) CAP PO SCH ×2 (08:46→19:59)
[2017-08-04] MEDS: APAP 300 MG/CODEINE 30 MG (TYLENOL #3) TAB PO PRN ×2 (08:47→21:26)
[2017-08-05 05:43] LABS: BASOPHILS # (AUTO) 0.1 10^3/uL (0.0-0.1); BASOPHILS % (AUTO) 0 % (0-10); EOSINOPHILS # (AUTO) 0.1 10^3/uL (0.0-0.3); EOSINOPHILS % (AUTO) 1 % (0-10); LYMPHOCYTES # (AUTO) 3.7 X 10^3 (1.0-4.0); LYMPHOCYTES % (AUTO) 32 % (12-44); MEAN CORPUSCULAR HEMOGLOBIN 31 PG (25-34); MEAN CORPUSCULAR HGB CONC 34 G/DL (32-36); MEAN CORPUSCULAR VOLUME 91 FL (80-99); MEAN PLATELET VOLUME 10.1 FL (7.4-10.4); MONOCYTES # (AUTO) 0.6 X 10^3 (0.0-1.0); MONOCYTES % (AUTO) 6 % (0-12); NEUTROPHILS % (AUTO) 61 % (42-75); PLATELET COUNT 233 10^3/uL (130-400); RED CELL DISTRIBUTION WIDTH 12.6 % (10.0-14.5); WHITE BLOOD COUNT 11.4 10^3/uL (4.3-11.0)
[2017-08-05 06:07] VITALS: BP 112/66
[2017-08-05] MEDS: IBUPROFEN 600 MG (MOTRIN) TAB PO SCH ×3 (06:07→18:35)
[2017-08-05] MEDS ORDERED: FERR-74 PO (07:53)
[2017-08-05] MEDS ORDERED: IBUP-1773 PO (07:53)
[2017-08-05] MEDS ORDERED: DOCU100C37 PO (07:53)
[2017-08-05] MEDS ORDERED: BENZ56AE2 TP (07:53)
[2017-08-05] MEDS ORDERED: ACET1TAB43 PO (07:53)
--- NOTE | 2017-08-05 07:56 | Progress Note-Standard ---
Standard Progress Note Progress Notes/Assess & Plan Date Seen by Provider: Aug 05, 2017 Time Seen by Provider: 07:45 Progress/Assessment & Plan Patient doing well this AM. No concerns voiced this am. Lochia light. Pain well controlled. Attempting . Vital Sign - Last 24 Hours 08/04/17 08/04/17 08/04/17 08/04/17 10:00 14:15 18:09 20:00 Temp 98.6 98.0 98.1 97.8 Pulse 71 77 66 68 Resp 18 18 18 18 B/P (MAP) 99/58 114/63 117/73 104/62 Pulse Ox 96 98 98 98 O2 Delivery Room Air Room Air Room Air 08/05/17 06:07 Temp 97.8 Pulse 65 Resp 18 B/P (MAP) 112/66 Pulse Ox 97 Uterine fundus firm and palpated below umbilicus Laboratory Tests Test 08/05/17 05:34 Range/Units White Blood Count 11.4 H 4.3-11.0 10^3/uL Red Blood Count 3.70 L 4.35-5.85 10^6/uL Hemoglobin 11.4 L 11.5-16.0 G/DL Hematocrit 34 L 35-52 % Mean Corpuscular Volume 91 80-99 FL Mean Corpuscular Hemoglobin 31 25-34 PG Mean Corpuscular Hemoglobin Concent 34 32-36 G/DL Red Cell Distribution Width 12.6 10.0-14.5 % Platelet Count 233 130-400 10^3/uL Mean Platelet Volume 10.1 7.4-10.4 FL Neutrophils (%) (Auto) 61 42-75 % Lymphocytes (%) (Auto) 32 12-44 % Monocytes (%) (Auto) 6 0-12 % Eosinophils (%) (Auto) 1 0-10 % Basophils (%) (Auto) 0 0-10 % Neutrophils # (Auto) 7.0 1.8-7.8 X 10^3 Lymphocytes # (Auto) 3.7 1.0-4.0 X 10^3 Monocytes # (Auto) 0.6 0.0-1.0 X 10^3 Eosinophils # (Auto) 0.1 0.0-0.3 10^3/uL Basophils # (Auto) 0.1 0.0-0.1 10^3/uL Diagnosis: PPD 1 NVD P: Anticipate dc later today Continue routine PP care DAYANA ZACARIAS DO Aug 05, 2017 7:56 am
[2017-08-05] MEDS ORDERED: INFLUENZA TRIvalent 2017-2018 0.5 ML/45 MCG SYR IM ONE (09:12)
[2017-08-05] MEDS: PRENATAL VITAMIN 1 EA TAB PO SCH (09:14)
[2017-08-05] MEDS: DOCUSATE SODIUM 100 MG (COLACE) CAP PO SCH (09:14)
[2017-08-05] MEDS: FERROUS SULF 325 MG (IRON) TAB PO SCH (09:14)
[2017-08-05 09:15] VITALS: BP 113/73
[2017-08-05 12:00] VITALS: BP 104/64
[2017-08-05 16:30] VITALS: BP 106/73
[2017-08-05 19:00] VITALS: BP 106/73
== END 2017-08-05 19:00 | disposition home or self-care (01) | DRG 775 ==
LOC: LDRP 23:26 → WSo 23:26 → LDRP 08-04 00:01
PROVIDERS: ADMIT Obstetrics & Gynecology; ATTEND Obstetrics & Gynecology
PROC: 0HQ9XZZ Repair Perineum Skin, External Approach (ICD-10-PCS; principal; 2017-08-04)
PROC: 10E0XZZ Delivery of Products of Conception, External Approach (ICD-10-PCS; 2017-08-04)
DX: O99.824 Streptococcus B carrier state complicating childbirth (principal); O70.0 First degree perineal laceration during delivery; Z3A.38 38 weeks gestation of pregnancy; Z37.0 Single live birth; Z23 Encounter for immunization
CPT/HCPCS: 36415; 85025; 86850; 86900; 86901; 99212

== ENCOUNTER 2018-08-28 19:17 | Emergency (ER) | payer MEDICAID ==
[~2018-08-28] VITALS: Ht 157.5 cm; Wt 68.0 kg
[~2018-08-28 19:17] MED LIST changes: +ACET1TAB43 PO; +ACHD5005 PO; +BENZ56AE2 TP; +DOCU100C37 PO; +FERR325T18 PO; -HYDR-3812 PO; +IBUP-1773 PO
[2018-08-28 20:05] LABS: BILIRUBIN,URINE NEGATIVE (NEGATIVE); CLARITY,URINE CLEAR; COLOR,URINE YELLOW; GLUCOSE, URINE (UA) NEGATIVE (NEGATIVE); KETONES,URINE NEGATIVE (NEGATIVE); LEUKOCYTE ESTERASE ,URINE 1+ (NEGATIVE); NITRITE,URINE NEGATIVE (NEGATIVE); PH,URINE 6 (5-9); PROTEIN,URINE NEGATIVE (NEGATIVE); UROBILINOGEN,URINE NORMAL (NORMAL)
--- NOTE | 2018-08-28 20:06 | ED General ---
General Chief Complaint: Abdominal/GI Problems Stated Complaint: FEELS ABNORMAL GROWTH IN ABD Nursing Triage Note: Pt ambulated to rm 10 w/o difficulty. Pt c/o knot in L lower abdomen. Pt sees Dr. Maloney and Dr. Maloney is aware of knot. Pt states knot has grown in size, but has not made Dr. Maloney aware of growth. Pt c/o lower back pain and nausea. Nursing Sepsis Screen: No Definite Risk Source of Information: Patient History of Present Illness Date Seen by Provider: Aug 28, 2018 Time Seen by Provider: 19:40 Initial Comments PT ARRIVES VIA POV FROM HOME C/O "BUMP" UNDER SKIN IN LEFT LOWER ABDOMEN FOR OVER A YEAR STATES SHE FIRST NOTICED IT WHEN SHE WAS --DELIVERED 08/04/17 STATES SHE HAD REPORTED IT TO DR. MALONEY DURING THE , BUT SHE REPORTEDLY WAS NOT CONCERNED ABOUT IT AT THAT TIME, AND PT HAS NOT FOLLOWED UP WITH ANYONE SINCE THEN THINKS THAT IT HAS GRADUALLY GOTTEN BIGGER, NOTICED A FEW DAYS AGO THAT IT WAS BIGGER AREA IS NOT TENDER SYMPTOMS ARE NO DIFFERENT TODAY IN ANY WAY HAS NOT SOUGHT CARE SINCE DELIVERY OVER A YEAR AGO HAS A ROUTINE WELL WOMAN EXAM WITH DR. MALONEY ON 09/12/18, AND PLANS TO DISCUSS THIS WITH HER AT THAT TIME. I IS NOT CLEAR WHAT IS URGENT TONIGHT THAT COULD NOT WAIT UNTIL THAT VISIT. PCP: ADRIAN PUMP STITCHER: DR. MALONEY Allergies and Home Medications Allergies Coded Allergies: NKANo Known Allergies (Verified Allergy, Unknown, 06/11/08) Home Medications Acetaminophen with Codeine 1 Each Tablet, 1 TAB PO Q4H PRN for PAIN-MILD Prescribed by: DAYANA ZACARIAS on 08/05/17752 Benzocaine/Menthol 56 Gm Aerosol, 56 ML TP UD PRN for PAIN- SEE INSTRUCTIONS Prescribed by: DAYANA ZACARIAS on 08/05/17752 Docusate Sodium 100 Mg Capsule, 100 MG PO BID PRN for CONSTIPATION-1ST LINE Prescribed by: DAYANA ZACARIAS on 08/05/17752 Ferrous Sulfate 325 Mg Tablet, 325 MG PO DAILY Prescribed by: DAYANA ZACARIAS on 08/05/17752 Ibuprofen 600 Mg Tablet, 600 MG PO Q6H Prescribed by: DAYANA ZACARIAS on 08/05/17752 Nitrofurantoin Monohyd/M-Cryst 100 Mg Capsule, 100 MG PO BID Prescribed by: FREDDIE GONCALVES on 08/28/182017 Vit/Iron Fumarate/FA 1 Each Tablet, 1 EACH PO DAILY, (Reported) Patient Home Medication List Home Medication List Reviewed: Yes Review of Systems Review of Systems Constitutional: no symptoms reported, other (TP HAS TEMP OF 100 HERE, BUT PT WAS UNAWARE OF FEVER, AND DENIES FEVER AT HOME) EENTM: no symptoms reported Respiratory: no symptoms reported Cardiovascular: no symptoms reported Gastrointestinal: no symptoms reported Genitourinary: no symptoms reported : No Musculoskeletal: no symptoms reported Skin: see HPI Psychiatric/Neurological: No Symptoms Reported Hematologic/Lymphatic: No Symptoms Reported Immunological/Allergic: no symptoms reported Past Izgdoln-Paeecc-Trqeun Hx Patient Social History Alcohol Use: Denies Use Recreational Drug Use: No Smoking Status: Former Smoker Type Used: Cigarettes Former Smoker, Quit: Jul 26, 2008 2nd Hand Smoke Exposure: No Recent Foreign Travel: No Contact w/Someone Who Travel: No Recent Infectious Disease Expo: No Recent Hopitalizations: No Immunizations Up To Date Tetanus Booster (TDap): Unknown PED Vaccines UTD: Yes Date of Influenza Vaccine: Dec 20, 2016 Seasonal Allergies Seasonal Allergies: No Past Medical History Surgeries: Yes (skull surgery at 10 months of age) Appendectomy Respiratory: No Cardiac: No Neurological: No Last Menstrual Period: Aug 14, 2017 Reproductive Disorders: No Female Reproductive Disorders: Denies Sexually Transmitted Disease: Yes HIV/AIDS: No Genitourinary: No Gastrointestinal: No Musculoskeletal: Yes (had skull surgery fpr fused suture at 10 months of age) Endocrine: No HEENT: No Cancer: No Psychosocial: No Integumentary: No Blood Disorders: No Family Medical History FH: breast cancer in first degree relative 19 MOTHER No Pertinent Family Hx Physical Exam Vital Signs Vital Signs - First Documented 08/28/18 19:30 Temp 100.4 Pulse 88 Resp 15 B/P (MAP) 128/70 (89) Pulse Ox 100 O2 Delivery Room Air Capillary Refill : Less Than 3 Seconds Height, Weight, BMI Height: 5'2.00" Weight: 150lbs. 0.0oz. 68.506713em; 33.1 BMI Method:Stated General Appearance: No Apparent Distress, WD/WN Neck: Normal Inspection Respiratory: Normal Breath Sounds, No Accessory Muscle Use, No Respiratory Distress Cardiovascular: Regular Rate, Rhythm, No Edema, No JVD, No Murmur, Normal Peripheral Pulses Gastrointestinal: Normal Bowel Sounds, No Organomegaly, No Pulsatile Mass, Non Tender, Soft, Other (HAS APPROXIMATELY 2 CM SUB Q SOFT/RUBBERY NODULE IN LEFT LOWER ABDOMEN, IS NOT TENDER AND NO OVERLYING SKIN CHANGES. HAS CONSISTENCY OF LIPOMA. 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 Norm as Tested Skin: Normal Color, Warm/Dry; No Rash Progress/Results/Core Measures Suspected Sepsis Recent Fever Within 48 Hours: Yes Infection Criteria Present: Suspected New Infection New/Unexplained Altered Menta: No Sepsis Screen: No Definite Risk SIRS Temperature:100.4 Pulse: 88 Respiratory Rate: 15 Blood Pressure 128 /70 Mean: 89 Results/Orders Lab Results Laboratory Tests Test 08/28/18 19:33 Range/Units Urine Color YELLOW Urine Clarity CLEAR Urine pH 6 5-9 Urine Specific Baker 1.025 H 1.016-1.022 Urine Protein NEGATIVE NEGATIVE Urine Glucose (UA) NEGATIVE NEGATIVE Urine Ketones NEGATIVE NEGATIVE Urine Nitrite NEGATIVE NEGATIVE Urine Bilirubin NEGATIVE NEGATIVE Urine Urobilinogen NORMAL NORMAL MG/DL Urine Leukocyte Esterase 1+ H NEGATIVE Urine RBC (Auto) NEGATIVE NEGATIVE Urine RBC 0-2 /HPF Urine WBC 2-5 /HPF Urine Squamous Epithelial Cells 5-10 /HPF Urine Crystals NONE /LPF Urine Bacteria FEW H /HPF Urine Casts NONE /LPF Urine Mucus SMALL H /LPF Urine Culture Indicated NO My Orders Orders - FREDDIE GONCALVES DO Urine Bedside (08/28/18 19:47) Ua Culture If Indicated (08/28/18 19:47) Urine Culture (08/28/18 20:16) Rx-Nitrofurantoin Mckean (Rx-Macrobid) (08/28/18 20:16) Rx-Nitrofurantoin Mckean (Rx-Macrobid) (08/28/18 20:26) Rx-Nitrofurantoin Mckean (Rx-Macrobid) (08/28/18 20:32) Vital Signs/I&O 08/28/18 08/28/18 19:30 20:29 Temp 100.4 100.4 Pulse 88 88 Resp 15 15 B/P (MAP) 128/70 (89) 128/70 (89) Pulse Ox 100 100 O2 Delivery Room Air Capillary Refill : Less Than 3 Seconds Blood Pressure Mean: 89 Progress Note : Progress Note UNEVENTFUL ER STAY Departure Impression Primary Impression: SUB Q NODULE LEFT LOWER ABDOMEN Additional Impression: Urinary tract infection Disposition: 01 HOME, SELF-CARE Condition: Stable Departure-Patient Inst. Referrals: OLIVIA MALONEY DO (PCP/Family) Primary Care Physician [facility] Patient Instructions: Urinary Tract Infection, Adult (DC) Add. Discharge Instructions: KEEP YOUR APPOINTMENT THIS MONTH WITH [facility] FOR FURTHER EVALUATION All discharge instructions reviewed with patient and/or family. Voiced understanding. Scripts Nitrofurantoin Monohyd/M-Cryst (Macrobid 100 mg Capsule) 100 Mg Capsule 100 MG PO BID, #20 CAP Prov: FREDDIE GONCALVES DO 08/28/18 FREDDIE GONCALVES DO Aug 28, 2018 20:06
[2018-08-28 20:11] LABS: BACTERIA,URINE FEW /HPF; RBC,URINE 0-2 /HPF
[2018-08-28] MEDS ORDERED: RX-NITROFURANTOIN 100 MG (MACROBID) CAP PPK#2 PO STA ×2 (20:16→20:32)
[2018-08-28] MEDS ORDERED: NITR-65 PO (20:18)
[2018-08-28] MEDS ORDERED: RX-NITROFURANTOIN 100 MG (MACROBID) CAP PPK#2 PO ONE (20:26)
[2018-08-28 20:29] VITALS: BP 128/70
== END 2018-08-28 20:32 | disposition home or self-care (01) ==
LOC: EDUNIT# 19:17 → ER 19:19
DX: N39.0 Urinary tract infection, site not specified (principal); Z87.891 Personal history of nicotine dependence; Z90.89 Acquired absence of other organs; Z80.3 Family history of malignant neoplasm of breast
CPT/HCPCS: 81000; 84703; 87088; 99283

== ENCOUNTER 2018-11-13 15:01 | Outpatient (CLI) | payer MEDICAID ==
[~2018-11-13] VITALS: Ht 157.5 cm; Wt 74.4 kg
[2018-11-14] MEDS ORDERED: ACHD5005 PO (09:53)
== END 2018-11-13 16:08 | disposition home or self-care (01) ==
LOC: PREOP 15:01
PROVIDERS: ATTEND Surgery
DX: Z01.818 Encounter for other preprocedural examination (principal)

== ENCOUNTER 2018-11-14 07:40 | Day surgery (SDC) | payer MEDICAID ==
[~2018-11-14] VITALS: Ht 157.5 cm; Wt 74.4 kg
--- OUTSIDE RECORDS SUMMARY | 2018-11-14 07:43 | XMS REPORT ---
Author Author MADDY GARCIA Organization [facility] Address [address] [place] [address] Care Team Providers Care Gizzard Puller Name Role Phone MADDY GARCIA Unavailable PROBLEMS Unknown Problems ALLERGIES No Known Allergies ENCOUNTERS Encounter Location Date Diagnosis [facility] [id number] [place] [phone] -[phone] Mar, Muscle strain T14.8XXA [facility] [id number] [place] [address] [id number] Dec, Dental examination Z01.20 [facility] [address] [id number] Mar, Dental examination Z01.20 [facility] [id number] [place] [address] 50837- 9262 Aug, [facility] [id number] [place] [address] 54771- 4686 Mar, Well woman exam with routine gynecological exam Z01.419 ; Screening breast examination Z12.39 and Encounter for initial prescription of other contraceptives Z30.018 [facility] [address] [id number] Mar, Dental examination Z01.20 [facility] [id number] [place] [address] 32684 -[phone] Jan, UTI (urinary tract infection) N39.0 ; Dysuria R30.0 and Vaginal andrew B37.3 [facility] [id number] [place] [address] [id number] Jan, Dental examination Z01.20 [facility] [address] [id number] Dec, Dental examination Z01.20 [facility] [address] [address] 16 Jun, 2015 Encounter for Depo-Provera contraception V25.49 [facility] [id number] [place] [address] 98914- 9888 07 May, 2015 Abdominal pain 789.00 ; Constipation 564.00 and Urinary tract infection 599.0 [facility] [id number] [place] [address] 94328- 1345 11 Mar, 2015 Routine gynecological examination V72.31 ; Screen for STD ( sexually transmitted disease) V74.5 ; Pap test, as part of routine gynecological examination V76.2 ; Breast cancer screening V76.10 and Initiation of Depo Provera V25.02 [facility] [id number] [place] [address] 23893- 7241 14 Jan, 2015 [facility] [id number] [place] [address] 89665- 7891 13 Jan, 2015 [facility] [id number] [place] [address] 18632- 5755 18 Sep, 2014 [facility] [id number] [place] [address] 70726- 4941 18 Sep, 2014 [facility] [id number] [place] [address] 46514- 6957 15 Sep, 2014 [facility] [id number] [place] [address] 39285- 8286 15 Sep, 2014 [facility] [id number] [place] [address] 20433- 3947 14 Sep, 2014 [facility] [id number] [place] [address] 26194- 2670 11 Sep, 2014 [facility] [id number] [place] [address] 92464- 0535 11 Sep, 2014 [facility] [id number] [place] [address] 67547- 0216 May, [facility] [place] [facility] [address] [id number] [place] [address] 1046 May, [facility] [place] [facility] [address] [id number] [place] [address] 5401 Apr, [facility] [place] [facility] [address] [id number] [place] [address]- 4618 Apr, [facility] [place] [facility] [address] [id number] [place] [address]- 3499 Apr, [facility] [place] [facility] [address] [id number] [place] [address]- 4117 Apr, [facility] [place] [facility] [address] [id number] [place] [address]- 0226 Jan, [facility] [place] [facility] [address] [id number] [place] [address]- 2427 Jan, [facility] [place] [facility] [address] [id number] [place] [address]- 1630 Jan, [facility] [place] [facility] [address] [id number] [place] [address]- 2896 Sep, [facility] [place] [facility] [address] [id number] [place] [address]- 8194 Sep, [facility] [place] [facility] [address] [id number] [place] [address]- 0584 Aug, [facility] [place] [facility] [address] [id number] [place] [address]- 6063 Aug, [facility] [place] [facility] [address] [id number] [place] [address] 3991 Jun, [facility] [place] [facility] [address] [id number] [place] [address]- 6975 May, [facility] [place] [facility] [address] [id number] [place] [address]- 0103 Apr, [facility] [place] [facility] [address] [id number] [place] [address]- 3459 18 Jan, 2013 [facility] [address] [id number] [place] [address]- 4424 17 Jan, 2013 [facility] [address] [id number] [place] [address]- [address] [address], [address] [facility] [address] [id number] [place] [address]- 3962 22 Jan, 2012 [facility] [address] [id number] [place] [address]- 1205 17 Jan, 2012 [facility] [address] [id number] [place] [address]- 6050 16 Jan, 2012 [facility] [address] [id number] [place] [address]- 3345 Jan, [facility] [address] [id number] [place] [address] 4788 Jan, [facility] [address] [id number] [place] [address]- 4568 Jul, [facility] [address] [id number] [place] [address] 4015 February, [facility] [address] [id number] [place] [address] 7819 Jan, [facility] [address] [id number] [place] [address]- 2309 Nov, [facility] [address] [id number] [place] [address]- 1781 Sep, [facility] [address] [id number] [place] [address]- 5398 Sep, [facility] [address] [id number] [place] [address]- 0859 Aug, [facility] [address] [id number] [place] [address] Aug, [facility] [address] [facility] [id number] [place] [address]- 0464 Aug, [facility] [address] [facility] [id number] [address] 8204 Aug, [facility] [address] [facility] [id number] [address]- [address] Jun, IMMUNIZATIONS No Known Immunizations SOCIAL HISTORY Never Assessed REASON FOR VISIT stomach pain- feels more like muscles are sore Nate PLAN OF CARE Activity Details Follow Up April 22 w/ Renetta Mathis Reason:establish care VITAL SIGNS Height 62 in 2018-04-02 Weight 161.2 lbs 2018-04-02 Temperature 97.4 degrees Fahrenheit 2018-04-02 Heart Rate 88 bpm 2018-04-02 Respiratory Rate 2018-04-02 BMI 29.48 kg/m2 2018-04-02 Blood pressure systolic 120 mmHg 2018-04-02 Blood pressure diastolic 80 mmHg 2018-04-02 MEDICATIONS Medication Instructions Dosage Frequency Start Date End Date Duration Status Depo-Provera Active RESULTS No Results PROCEDURES No Known procedures INSTRUCTIONS MEDICATIONS ADMINISTERED No Known Medications MEDICAL (GENERAL) HISTORY Type Description Date Medical History chronic constipation Surgical History Skull surgery for fused sutures as an Surgical History appendectomy Hospitalization History surgery
--- OUTSIDE RECORDS SUMMARY | 2018-11-14 07:43 | XMS REPORT ---
Author Author JONOJOSHUA ASHLEY [facility] Address Unknown Care Team Providers Care Portfolio Assistant Name Role Phone ASHLEY CARRIZALES Unavailable PROBLEMS Unknown Problems ALLERGIES No Known Allergies ENCOUNTERS Encounter Location Date Diagnosis [facility] [id number] [place] [address]3961- 3772 Apr, [facility] [address] [phone] Mar, Muscle strain T14.8XXA [facility] [address] [id number] Dec, Dental examination Z01.20 [facility] [address] [id number] Mar, Dental examination Z01.20 [facility] [address] [address]- [address] Aug, [facility] [id number] [place] [address] 91073- 8853 Mar, Well woman exam with routine gynecological exam Z01.419 ; Screening breast examination Z12.39 and Encounter for initial prescription of other contraceptives Z30.018 [facility] [address] [id number] Mar, Dental examination Z01.20 [facility] [id number] [place] [address] 81542 -[phone] Jan, UTI (urinary tract infection) N39.0 ; Dysuria R30.0 and Vaginal andrew B37.3 [facility] [id number] [place] [address] [id number] Jan, Dental examination Z01.20 [facility] [id number] [id number] 11 Dec, 2015 Dental examination Z01.20 [facility] [id number] [place] [address] 53539- 4364 16 Jun, 2015 Encounter for Depo-Provera contraception V25.49 [facility] [id number] [place] [address] 50971- 0500 07 May, 2015 Abdominal pain 789.00 ; Constipation 564.00 and Urinary tract infection 599.0 [facility] [id number] [place] [address] 11447- 7871 11 Mar, 2015 Routine gynecological examination V72.31 ; Screen for STD ( sexually transmitted disease) V74.5 ; Pap test, as part of routine gynecological examination V76.2 ; Breast cancer screening V76.10 and Initiation of Depo Provera V25.02 [facility] [id number] [place] [address] 16665- 2782 14 Jan, 2015 [facility] [id number] [place] [address] 66717- 0774 13 Jan, 2015 [facility] [id number] [place] [address] 06469- 1256 18 Sep, 2014 [facility] [id number] [place] [address] 56102- 3444 18 Sep, 2014 [facility] [address] [place] [address] 75982- 5038 15 Sep, 2014 [facility] [id number] [place] [address] 09380- 5242 15 Sep, 2014 [facility] [id number] [place] [address] 42780- 1909 14 Sep, 2014 [facility] [id number] [place] [address] 09305- 2809 11 Sep, 2014 [facility] [id number] [place] [address] 24598- 5238 11 Sep, 2014 [facility] [place] [facility] [address] [id number] [place] [address] 2545 May, [facility] [place] [facility] [address] [id number] [place] [address]- 4423 May, [facility] [place] [facility] [address] [id number] [place] [address]- 2565 Apr, [facility] [place] [facility] [address] [id number] [place] [address]- 5992 Apr, [facility] [place] [facility] [address] [id number] [place] [address]- 7402 Apr, [facility] [place] [facility] [address] [id number] [place] [address]- 7338 Apr, [facility] [place] [facility] [address] [id number] [place] [address]- 5795 Jan, [facility] [place] [facility] [address] [id number] [place] [address]- 0478 Jan, [facility] [place] [facility] [address] [id number] [place] [address]- 4090 Jan, [facility] [place] [facility] [address] [id number] [place] [address]- 1480 Sep, [facility] [place] [facility] [address] [id number] [place] [address]- 7618 Sep, [facility] [place] [facility] [address] [id number] [place] [address]- 7318 Aug, [facility] [place] [facility] [address] [id number] [place] [address]- 5290 Aug, [facility] [place] [facility] [address] [id number] [place] [address]- 4886 Jun, [facility] [place] [facility] [address] [id number] [place] [address]- 9456 May, [facility] [place] [facility] [address] [id number] [place] [address]- 4351 Apr, [facility] [address] [id number] [place] [address]- 2487 18 Jan, 2013 [facility] [address] [id number] [place] [address]- 3847 17 Jan, 2013 [facility] [address] [id number] [place] [address]- 3689 Jan, [facility] [address] [id number] [place] [address]- 0409 Jan, [facility] [address] [id number] [place] [address]- 7874 Jan, [facility] [address] [id number] [place] [address]- 1570 16 Jan, 2012 [facility] [address] [id number] [place] [address]- 5926 Jan, [facility] [address] [id number] [place] [address]- 6354 Jan, [facility] [address] [id number] [place] [address]- 5298 Jul, [facility] [place] [facility] [address] [id number] [place] [address]- 1784 February, [facility] [address] [id number] [place] [address]- 9704 Jan, [facility] [place] [facility] [address] [id number], [place] [address]- 4042 Nov, [facility] [place] [facility] [address] [id number] [place] [address]- 4048 Sep, [facility] [place] [facility] [address] [id number] [place] [address]- 2267 Sep, [facility] [place] [facility] [address] [id number] [place] [address]- 7550 Aug, [facility] [place] [facility] [address] [id number] [place] [address]- 1796 Aug, [facility] [address] [id number] [place] [address]- 9384 Aug, [facility] [address] [id number], [place] [address]- 6484 Aug, [facility] [address] [id number], [place] [address] Jun, IMMUNIZATIONS No Known Immunizations SOCIAL HISTORY Never Assessed REASON FOR VISIT FILLING PLAN OF CARE Activity Details Follow Up prn Reason:# 12 MO VITAL SIGNS Height 62 in 2017-12-20 Blood pressure systolic 119 mmHg 2017-12-20 Blood pressure diastolic 100 mmHg 2017-12-20 MEDICATIONS Medication Instructions Dosage Frequency Start Date End Date Duration Status Depo-Provera Active Diflucan 150 MG Orally Once a day 1 tablet 24h Jan, 1 dose Not -Taking Norelgestromin-Eth Estradiol 150-35 MCG/24HR Transdermal once weekly 1 patch to skin Mar, Not-Taking Amoxicillin 500 MG Orally Three times a day 1 capsule 8h 7 days Not- Taking [place] 5-325 MG Orally every 6 hrs 1 tablet as needed 6h 4 days Not- Taking RESULTS No Results PROCEDURES Procedure Date Ordered Result Body Site BITEWINGS - FOUR FILMS December 20, 2017 RESIN COMPOS - 2 SURFACES POSTERIOR December 20, 2017 INSTRUCTIONS MEDICATIONS ADMINISTERED No Known Medications MEDICAL (GENERAL) HISTORY Type Description Date Medical History chronic constipation Surgical History Skull surgery for fused sutures as an Surgical History appendectomy Hospitalization History surgery
--- OUTSIDE RECORDS SUMMARY | 2018-11-14 07:44 | XMS REPORT ---
Author Author ASHLEY CARRIZALES [facility] Address Unknown Care Team Providers Care General Internist And Physician Leader Name Role Phone ASHLEY CARRIZALES Unavailable PROBLEMS Type Condition ICD9-CM Code [id number] Code Onset Dates Condition Status SNOMED Code Problem Abdominal pain 789.00 Active 99959139 Problem Urinary tract infection 599.0 Active 58457976 Problem Constipation 564.00 Active 45387321 ALLERGIES No Information ENCOUNTERS Encounter Location Date Diagnosis [facility] [address] [id number] Dec, Dental examination Z01.20 [facility] [address] [id number] Mar, Dental examination Z01.20 [facility] [address] [address] Aug, [facility] [address] [address] Mar, Well woman exam with routine gynecological exam Z01.419 ; Screening breast examination Z12.39 and Encounter for initial prescription of other contraceptives Z30.018 [facility] [id number] [place] [id number] Mar, Dental examination Z01.20 [facility] [id number] [place] [address] Jan, UTI (urinary tract infection) N39.0 ; Dysuria R30.0 and Vaginal andrew B37.3 [facility] [id number] [place] [id number] Jan, Dental examination Z01.20 [facility] [address] [id number] Mar, 2016 Dental examination Z01.20 [facility] [address] [address] 16 Jun, 2015 Encounter for Depo-Provera contraception V25.49 [facility] [id number] [place] [address] 07 May, 2015 Abdominal pain 789.00 ; Constipation 564.00 and Urinary tract infection 599.0 [facility] [id number] [place] [address] 11 Mar, 2015 Routine gynecological examination V72.31 ; Screen for STD ( sexually transmitted disease) V74.5 ; Pap test, as part of routine gynecological examination V76.2 ; Breast cancer screening V76.10 and Initiation of Depo Provera V25.02 [facility] [id number] [place] [address]- [address] 14 Jan, 2015 [facility] [id number] [place] [address]- [address] 13 Jan, 2015 [facility] [id number] [place] [address]- [address] 18 Sep, 2014 [facility] [id number] [place] [address]- 70[address] 18 Sep, 2014 [facility] [address] [address] 15 Sep, 2014 [facility] [id number] [place] [address]851- 9561 15 Sep, 2014 [facility] [id number] [place] [address] 49034- 4614 14 Sep, 2014 [facility] [id number] [place] [address]- [address] Sep, [facility] [address] [address] Sep, [facility] [id number] [place] [address]- [address] May, [facility] [place] [facility] [address] [id number] [place] [address] May, [facility] [place] [facility] [address] [id number] [place] [address] Apr, [facility] [place] [facility] [address] [id number] [place] [address] Apr, [facility] [place] [facility] [address] [id number] [place] [address] Apr, [facility] [place] [facility] [address] [id number] [place] [address] Apr, [facility] [place] [facility] [address] [id number] [place] [address] Jan, [facility] [place] [facility] [address] [id number] [place] [address] Jan, [facility] [place] [facility] [address] [id number] [place] [address] 94[address] Jan, [facility] [place] [facility] [address] [id number] [place] [address] Sep, [facility] [place] [facility] [address] [id number] [place] [address] 94[address] Sep, [facility] [place] [facility] [address] [id number] [place] [address] 39[address] Aug, [facility] [place] [facility] [address] [id number] [place] [address] Aug, [facility] [place] [facility] [address] [id number] [place] [address] Jun, [facility] [place] [facility] [address] [id number] [place] [address] May, [facility] [place] [facility] [address] [id number] [place] [address] Apr, [facility] [place] [facility] [address] [id number] [place] [address]- 118[address] 18 Jan, 2013 [facility] [address] [id number] [place] [address]- [address] 17 Jan, 2013 [facility] [place] [facility] [address] [id number] [place] [address]- [address] 08 Jan, 2013 [facility] [address] [id number] [place] [address]- [address] Jan, [facility] [place] [facility] [address] [id number] [place] [address]- [address] 17 Jan, 2012 [facility] [address] [id number] [place] [address]- 9079 16 Jan, 2012 [facility] [address] [id number] [place] [address]- 6078 Jan, [facility] [address] [id number] [place] [address] 2450 Jan, [facility] [address] [id number] [place] [address]- 9[address] Jul, [facility] [address] [id number] [place] [address]- [address] February, [facility] [address] [id number] [place] [address]- 30[address] Jan, [facility] [address] [id number] [place] [address]- [address] 16 Nov, 2010 [facility] [place] [facility] [address] [id number] [place] [address]- 8909 Sep, [facility] [place] [facility] [address] [id number] [place] [address]- 4398 Sep, [facility] [place] [facility] [address] [id number] [place] [address]- 70[address] Aug, [facility] [place] [facility] [address] [id number] [place] [address]- [address] Aug, [facility] [place] [facility] [address] [facility] [id number] [place] [address] Aug, [facility] [address] [facility] [id number] [address] 11 Aug, 2010 [facility] [address] [facility] [id number] [place] [address]- [address] 14 Jun, 2009 IMMUNIZATIONS No Known Immunizations SOCIAL HISTORY Never Assessed REASON FOR VISIT FILLINGS PLAN OF CARE VITAL SIGNS MEDICATIONS No Known Medications RESULTS No Results PROCEDURES Procedure Date Ordered Result Body Site Billing Notes on claim March 26, 2017 INSTRUCTIONS MEDICATIONS ADMINISTERED No Known Medications MEDICAL (GENERAL) HISTORY Type Description Date Medical History chronic constipation Surgical History Skull surgery for fused sutures as an Surgical History appendectomy Hospitalization History surgery
--- OUTSIDE RECORDS SUMMARY | 2018-11-14 07:45 | XMS REPORT | Continuity of Care Document ---
Author Author [facility] Address Unknown Phone Unavailable Allergies Active Description Code Type Severity Reaction Onset Reported/Identified Relationship to Patient Clinical Status Yes NKANo Known Allergies NKA Miscellaneous Allergy Unknown N/A 06/11/2008 Medications There is no data. Problems Date Dx Coded Attending Type Code [...] Shoulder And Upper Arm Without Infection 06/27/2009 BRANDON CARDENAS DO K 912.4 Insect Bite Nonvenomous Of Shoulder And Upper Arm Without Infection 06/27/2009 JOHN ABRAMS APRN R 912.4 Insect Bite Nonvenomous Of Shoulder And Upper Arm Without Infection 06/27/2009 HERMAN MCNEILL, RUDI J 912.4 Insect Bite Nonvenomous Of [...] Specified Disorders Of Function Of Stomach 06/06/2010 DEREK NAIK APRN A 681.11 Onychia And Paronychia Of Toe 06/06/2010 DEREK NAIK APRN A 536.8 Dyspepsia And Other Specified Disorders Of Function Of Stomach 06/06/2010 DEREK NAIK APRN A 681.11 Onychia And Paronychia Of Toe 06/06/2010 DEREK NAIK APRN A 536.8 Dyspepsia And Other Specified Disorders Of Function Of Stomach 06/06/2010 DEREK NAIK APRN A 681.11 Onychia And Paronychia Of Toe 06/06/2010 VIKASH ABRAMS APRNIA R 536.8 Dyspepsia And Other Specified Disorders Of Function Of Stomach 06/06/2010 VIKASH ABRAMS APRNIA R 681.11 Onychia And Paronychia Of Toe 06/06/2010 CARDENAS BRANDON JONES K 536.8 Dyspepsia And Other Specified Disorders Of Function Of Stomach 06/06/2010 CARDENAS BRANDON JONES K 681.11 Onychia And Paronychia Of Toe 06/06/2010 VIKASH ABRAMS APRNIA R 536.8 Dyspepsia And Other Specified Disorders Of Function Of Stomach 06/06/2010 VIKASH ABRAMS APRNIA R 681.11 Onychia And Paronychia Of Toe 06/06/2010 RUDI SUTTON DDS 536.8 Dyspepsia And Other Specified Disorders Of Function Of Stomach 06/06/2010 RUDI SUTTON DDS 681.11 Onychia And Paronychia Of Toe 06/21/2010 NODX No Diagnosis 06/21/2010 NODX No Diagnosis 06/21/2010 NODX No Diagnosis 06/21/2010 LUZ MARIA ABRAMS APRNRICIA R NODX No Diagnosis 06/21/2010 HEENA PROPOSAL CONSULTANT, DEREK A NODX No Diagnosis 06/21/2010 HEENA AURORA, DEREK A NODX No Diagnosis 06/21/2010 HEENA AURORA, DEREK A NODX No Diagnosis 06/21/2010 VIKASH ABRAMS APRNIA R NODX No Diagnosis 06/21/2010 BRANDON CARDENAS DO K NODX No Diagnosis 06/21/2010 LUZ MARIA ABRAMS APRNRICIA R NODX No Diagnosis 06/21/2010 RUDI SUTTON DDS NODX No Diagnosis 07/19/2010 626.4 Irregular Menstrual Cycle 07/19/2010 V72.31 Quarter Supervisor Exam, Routine 07/19/2010 V72.42 Test Positive Result 07/19/2010 V74.5 Std Screen 07/19/2010 626.4 Irregular Menstrual Cycle 07/19/2010 V72.31 Quarter Supervisor Exam, Routine 07/19/2010 V72.42 Test Positive Result 07/19/2010 V74.5 Std Screen 07/19/2010 626.4 Irregular Menstrual Cycle 07/19/2010 V72.31 Quarter Supervisor Exam, Routine 07/19/2010 V72.42 Test Positive Result 07/19/2010 V74.5 Std Screen 07/19/2010 ABRAMS PROPOSAL CONSULTANT, JOHN R 626.4 Irregular Menstrual Cycle 07/19/2010 ABRAMS PROPOSAL CONSULTANT, JOHN R V72.31 Quarter Supervisor Exam, Routine 07/19/2010 ABRAMS PROPOSAL CONSULTANT, JOHN R V72.42 Test Positive Result 07/19/2010 ABRAMS PROPOSAL CONSULTANT, JOHN R V74.5 Std Screen 07/19/2010 HEENA PROPOSAL CONSULTANT, DEREK A 626.4 Irregular Menstrual Cycle 07/19/2010 HEENA PROPOSAL CONSULTANT, DEREK A V72.31 Quarter Supervisor Exam, Routine 07/19/2010 HEENA PROPOSAL CONSULTANT, DEREK A V72.42 Test Positive Result 07/19/2010 HEENA PROPOSAL CONSULTANT, DEREK A V74.5 Std Screen 07/19/2010 HEENA PROPOSAL CONSULTANT, DEREK A 626.4 Irregular Menstrual Cycle 07/19/2010 HEENA PROPOSAL CONSULTANT, DEREK A V72.31 Quarter Supervisor Exam, Routine 07/19/2010 HEENA PROPOSAL CONSULTANT, DEREK A V72.42 Test Positive Result 07/19/2010 HEENA PROPOSAL CONSULTANT, DEREK A V74.5 Std Screen 07/19/2010 HEENA PROPOSAL CONSULTANT, DEREK A 626.4 Irregular Menstrual Cycle 07/19/2010 HEENA PROPOSAL CONSULTANT, DEREK A V72.31 Quarter Supervisor Exam, Routine 07/19/2010 HEENA PROPOSAL CONSULTANT, DEREK A V72.42 Test Positive Result 07/19/2010 HEENA PROPOSAL CONSULTANT, DEREK A V74.5 Std Screen 07/19/2010 ABRAMS PROPOSAL CONSULTANT, JOHN R 626.4 Irregular Menstrual Cycle 07/19/2010 ABRAMS PROPOSAL CONSULTANT, JOHN R V72.31 Quarter Supervisor Exam, Routine 07/19/2010 ABRAMS PROPOSAL CONSULTANT, JOHN R V72.42 Test Positive Result 07/19/2010 ABRAMS PROPOSAL CONSULTANT, JOHN R V74.5 Std Screen 07/19/2010 CARDENAS DO, BRANDON K 626.4 Irregular Menstrual Cycle 07/19/2010 CARDENAS DO, BRANDON K V72.31 Quarter Supervisor Exam, Routine 07/19/2010 CARDENAS DO, BRANDON K V72.42 Test Positive Result 07/19/2010 CARDENAS DO, BRANDON K V74.5 Std Screen 07/19/2010 ABRAMS LUZ MARIA SIMONRICIA R 626.4 Irregular Menstrual Cycle 07/19/2010 LUZ MARIA ABRAMS APRNRICIA R V72.31 Quarter Supervisor Exam, Routine 07/19/2010 ABRAMS PROPOSAL CONSULTANT, JOHN R V72.42 Test Positive Result 07/19/2010 ABRAMS LUZ MARIA SIMONRICIA R V74.5 Std Screen 07/19/2010 WHITE DDS, RUDI J 626.4 Irregular Menstrual Cycle 07/19/2010 WHITE DDS, RUDI J V72.31 Quarter Supervisor Exam, Routine 07/19/2010 WHITE DDS, RUDI J V72.42 Test Positive Result 07/19/2010 WHITE DDS, RUDI J V74.5 Std Screen 08/24/2010 V22.1 , NORMAL OTHER 08/24/2010 V22.1 , NORMAL OTHER 08/24/2010 V22.1 , NORMAL OTHER 08/24/2010 VIKASH ABRAMS APRNIA R V22.1 , NORMAL OTHER 08/24/2010 HEENA APRN, DEREK A V22.1 , NORMAL OTHER 08/24/2010 HEENA PROPOSAL CONSULTANT, DEREK A V22.1 , NORMAL OTHER 08/24/2010 HEENA SIMON, DEREK A V22.1 , NORMAL OTHER 08/24/2010 JOSE ALBERTO SIMON, JOHN R V22.1 , NORMAL OTHER 08/24/2010 BRANDON CARDENAS DO K V22.1 , NORMAL OTHER 08/24/2010 LUZ MARIA ABRAMS APRNRICIA R V22.1 , NORMAL OTHER 08/24/2010 WHITE DDS, RUDI J V22.1 , NORMAL OTHER 09/05/2010 V04.3 RUBELLA NON- IMMUNE - NEED FOR VACCINATION 09/05/2010 V04.3 RUBELLA NON- IMMUNE - NEED FOR VACCINATION 09/05/2010 V04.3 RUBELLA NON- IMMUNE - NEED FOR VACCINATION 09/05/2010 JOHN ABRAMS APRN R V04.3 RUBELLA NON-IMMUNE - NEED FOR VACCINATION 09/05/2010 DEREK NAIK APRN A V04.3 RUBELLA NON-IMMUNE - NEED FOR VACCINATION 09/05/2010 HEENA PROPOSAL CONSULTANT, DEREK A V04.3 RUBELLA NON-IMMUNE - NEED FOR VACCINATION 09/05/2010 HEENA PROPOSAL CONSULTANT, DEREK A V04.3 RUBELLA NON-IMMUNE - NEED FOR [...] 703.0 Nail Ingrown 09/12/2010 V22.2 Incidental 09/12/2010 VIKASH ABRAMS APRNIA R 703.0 Nail Ingrown 09/12/2010 LUZ MARIA ABRAMS APRNRICIA R V22.2 Incidental 09/12/2010 HEENA PROPOSAL CONSULTANT, DEREK A 703.0 Nail Ingrown 09/12/2010 HEENA PROPOSAL CONSULTANT, DEREK A V22.2 Incidental 09/12/2010 HEENA PROPOSAL CONSULTANT, DEREK A 703.0 Nail Ingrown 09/12/2010 HEENA PROPOSAL CONSULTANT, DEREK A V22.2 Incidental 09/12/2010 HEENA PROPOSAL CONSULTANT, DEREK A 703.0 Nail Ingrown 09/12/2010 HEENA PROPOSAL CONSULTANT, DEREK A V22.2 Incidental 09/12/2010 LUZ MARIA ABRAMS APRNRICIA R 703.0 Nail Ingrown 09/12/2010 LUZ MARIA ABRAMS APRNRICIA R V22.2 Incidental 09/12/2010 CARDENAS DO BRANDON K 703.0 Nail Ingrown 09/12/2010 CARDENAS DO, BRANDON K V22.2 Incidental 09/12/2010 VIKASH ABRAMS APRNIA R 703.0 Nail Ingrown 09/12/2010 VIKASH ABRAMS APRNIA R V22.2 Incidental 09/12/2010 RUDI SUTTON DDS 703.0 Nail Ingrown 09/12/2010 RUDI SUTTON DDS V22.2 Incidental 11/13/2010 616.10 Vaginitis Vulvovaginitis Unspecified 11/13/2010 616.10 Vaginitis Vulvovaginitis Unspecified 11/13/2010 616.10 Vaginitis Vulvovaginitis Unspecified 11/13/2010 VIKASH ABRAMS APRNIA R 616.10 Vaginitis Vulvovaginitis Unspecified 11/13/2010 HEENA PROPOSAL CONSULTANT, DEREK A 616.10 Vaginitis Vulvovaginitis Unspecified 11/13/2010 HEENA PROPOSAL CONSULTANT, DEREK A 616.10 Vaginitis Vulvovaginitis Unspecified 11/13/2010 HEENA APRN, DEREK A 616.10 Vaginitis Vulvovaginitis Unspecified 11/13/2010 VIKASH ABRAMS APRNIA R 616.10 Vaginitis Vulvovaginitis Unspecified 11/13/2010 BRANDON CARDENAS DO K 616.10 Vaginitis Vulvovaginitis Unspecified 11/13/2010 VIKASH ABRAMS APRNIA R 616.10 Vaginitis Vulvovaginitis Unspecified 11/13/2010 RUDI SUTTON DDS 616.10 Vaginitis Vulvovaginitis Unspecified 11/21/2010 789.00 Abdominal Pain Unspecified Site 11/21/2010 789.00 Abdominal Pain Unspecified Site 11/21/2010 789.00 Abdominal Pain Unspecified Site 11/21/2010 JOHN ABRAMS APRN R 789.00 Abdominal Pain Unspecified Site 11/21/2010 HEENA APRN, EDREK A 789.00 Abdominal Pain Unspecified Site 11/21/2010 HEENA APRN, DEREK A 789.00 Abdominal Pain Unspecified Site 11/21/2010 HEENA APRN, DEREK A 789.00 Abdominal Pain Unspecified Site 11/21/2010 JOHN ABRAMS APRN R 789.00 Abdominal Pain Unspecified Site 11/21/2010 BRANDON CARDENAS DO K 789.00 Abdominal Pain Unspecified Site 11/21/2010 JOHN ABRAMS APRN R 789.00 Abdominal Pain Unspecified Site 11/21/2010 RUDI SUTTON DDS 789.00 Abdominal Pain Unspecified Site 02/07/2011 V02.51 GBS - CARRIER OR SUSPECTED CARRIER 02/07/2011 V02.51 GBS - CARRIER OR SUSPECTED CARRIER 02/07/2011 V02.51 GBS - CARRIER OR SUSPECTED CARRIER 02/07/2011 JOHN ABRAMS APRN V02.51 GBS - CARRIER OR SUSPECTED CARRIER 02/07/2011 DEREK NAIK APRN A V02.51 GBS - CARRIER OR SUSPECTED CARRIER 02/07/2011 DEREK NAIK APRN A V02.51 GBS - CARRIER OR SUSPECTED CARRIER 02/07/2011 DEREK NAIK APRN A V02.51 GBS - CARRIER OR SUSPECTED CARRIER 02/07/2011 JOHN ABRAMS APRN V02.51 GBS - CARRIER OR SUSPECTED CARRIER 02/07/2011 THERESA JONES BRANDON Jorge V02.51 GBS - CARRIER OR SUSPECTED CARRIER 02/07/2011 JOHN ABRAMS APRN V02.51 GBS - CARRIER OR SUSPECTED CARRIER 02/07/2011 RUDI SUTTON DDS V02.51 GBS - CARRIER OR SUSPECTED CARRIER 02/28/2011 Ot 648.91 OTH CURR COND-DELIVERED 02/28/2011 Ot 664.81 OB PERINEAL TRAU NEC-DEL 02/28/2011 Ot V02.51 GROUP B STREPT CARRIER/SUSPECTED CARRIER 02/28/2011 Ot V06.1 DIPHTHERIA- TETANUS-PERTUSSIS, COMBINED [ 02/28/2011 Ot V06.4 VAC-MEASLE- MUMPS-RUBELLA 02/28/2011 Ot V27.0 DELIVER- SINGLE LIVEBORN 05/14/2011 623.5 vaginal discharge 05/14/2011 V24.2 visit for: exam 05/14/2011 623.5 vaginal discharge 05/14/2011 V24.2 visit for: exam 05/14/2011 623.5 vaginal discharge 05/14/2011 V24.2 visit for: exam 05/14/2011 JOHN ABRAMS APRN 623.5 vaginal discharge 05/14/2011 JOHN ABRAMS APRN V24.2 visit for: exam 05/14/2011 DEREK NAIK APRN 623.5 vaginal discharge 05/14/2011 DEREK NAIK APRN V24.2 visit for: exam 05/14/2011 DONNY NAIK APRNIDI A 623.5 vaginal discharge 05/14/2011 DONNY NAIK APRNIDI A V24.2 visit for: exam 05/14/2011 HEENA SIMON, DEREK A 623.5 vaginal discharge 05/14/2011 DONNY NAIK APRNIDI A V24.2 visit for: exam 05/14/2011 JOHN ABRAMS APRN R 623.5 vaginal discharge 05/14/2011 LUZ MARIA ABRAMS APRNRICIA R V24.2 visit for: exam 05/14/2011 CARDENAS ALVIN JONESA K 623.5 vaginal discharge 05/14/2011 CARDENAS BARNDON JONES K V24.2 visit for: exam 05/14/2011 JOHN ABRAMS APRN R 623.5 vaginal discharge 05/14/2011 VIKASH ABRAMS APRNIA R V24.2 visit for: exam 05/14/2011 WHITE RUDI MCNEILL J 623.5 vaginal discharge 05/14/2011 RUDI SUTTON DDS J V24.2 visit for: exam 08/07/2011 372.30 CONJUNCTIVITIS UNSPECIFIED 08/07/2011 372.30 CONJUNCTIVITIS UNSPECIFIED 08/07/2011 372.30 CONJUNCTIVITIS UNSPECIFIED 08/07/2011 JOHN ABRAMS APRN R 372.30 CONJUNCTIVITIS UNSPECIFIED 08/07/2011 DONNY NAIK APRNIDI A 372.30 CONJUNCTIVITIS UNSPECIFIED 08/07/2011 DONNY NAIK APRNIDI A 372.30 CONJUNCTIVITIS UNSPECIFIED 08/07/2011 DONNY NAIK APRNIDI A 372.30 CONJUNCTIVITIS UNSPECIFIED 08/07/2011 JOHN ABRAMS APRN R 372.30 CONJUNCTIVITIS UNSPECIFIED 08/07/2011 ALVIN CARDENAS DOA K 372.30 CONJUNCTIVITIS UNSPECIFIED 08/07/2011 VIKASH ABRAMS APRNIA R 372.30 CONJUNCTIVITIS UNSPECIFIED 08/07/2011 RUDI SUTTON [...] APRNIA R V74.5 visit for: screening exam bact/spirochetal venereal disease 01/21/2012 JOHN ABRAMS APRN R V76.2 Cervical Pap Smear 01/21/2012 HEENADaphnie SIMON DEREK A V25.41 visit for: contraceptive surveillance pill 01/21/2012 HEENADaphnie SIMON DEREK A V74.5 visit for: screening exam bact/spirochetal venereal disease 01/21/2012 HEENA APRN, DEREK A V76.2 Cervical Pap Smear 01/21/2012 HEENADaphnie SIMON DEREK A V25.41 visit for: contraceptive surveillance pill 01/21/2012 HEENADaphnie SIMON DEREK A V74.5 visit for: screening exam bact/spirochetal venereal disease 01/21/2012 HEENA APRN, DEREK A V76.2 Cervical Pap Smear 01/21/2012 HEENA SIMON DEREK A V25.41 visit for: contraceptive surveillance pill 01/21/2012 HEENA SIMON DEREK A V74.5 visit for: screening exam bact/spirochetal venereal disease 01/21/2012 HEENA APRN, DEREK A V76.2 Cervical Pap Smear 01/21/2012 VIKASH ABRAMS APRNIA R V25.41 visit for: contraceptive surveillance pill 01/21/2012 JOHN ABRAMS APRN R V74.5 visit for: screening exam bact/spirochetal venereal disease 01/21/2012 VIKASH ABRAMS APRNIA R V76.2 Cervical Pap Smear 01/21/2012 BRANDON CARDENAS DO V25.41 visit for: contraceptive surveillance pill 01/21/2012 BRANDON CARDENAS DO V74.5 visit for: screening exam bact/spirochetal venereal disease 01/21/2012 BRANDON CARDENAS DO V76.2 Cervical Pap Smear 01/21/2012 JOHN ABRAMS APRN R V25.41 visit for: contraceptive surveillance pill 01/21/2012 JOHN ABRAMS APRN V74.5 visit for: screening exam bact/spirochetal venereal disease 01/21/2012 JOHN ABRAMS APRN R V76.2 Cervical Pap Smear 01/21/2012 WHITE DDS, RUDI J V25.41 visit for: contraceptive surveillance pill 01/21/2012 WHITE DDS, RUDI J V74.5 visit for: screening exam bact/spirochetal venereal disease 01/21/2012 WHITE DDS, RUDI J V76.2 Cervical Pap Smear 01/19/2013 V25.01 CONTRACEPTION - ORAL CONTRACEPTION 01/19/2013 V76.10 BREAST CANCER SCREENING 01/19/2013 V25.01 CONTRACEPTION - ORAL CONTRACEPTION 01/19/2013 V76.10 BREAST CANCER SCREENING 01/19/2013 V25.01 CONTRACEPTION - ORAL CONTRACEPTION 01/19/2013 V76.10 BREAST CANCER SCREENING 01/19/2013 JOHN ABRAMS APRN R V25.01 CONTRACEPTION - ORAL CONTRACEPTION 01/19/2013 JOHN ABRAMS APRN R V76.10 BREAST CANCER SCREENING 01/19/2013 HEENADaphnie SIMON DEREK A V25.01 CONTRACEPTION - ORAL CONTRACEPTION 01/19/2013 HEENA SIMON DEREK A V76.10 BREAST CANCER SCREENING 01/19/2013 HEENA SIMON DEREK A V25.01 CONTRACEPTION - ORAL CONTRACEPTION 01/19/2013 HEENADaphnie SIMON DEREK A V76.10 BREAST CANCER SCREENING 01/19/2013 EHENA SIMON DEREK A V25.01 CONTRACEPTION - ORAL CONTRACEPTION 01/19/2013 HEENA SIMON DEREK A V76.10 BREAST CANCER SCREENING 01/19/2013 JOHN ABRAMS APRN R V25.01 CONTRACEPTION - ORAL CONTRACEPTION 01/19/2013 JOHN ABRAMS APRN R V76.10 BREAST CANCER SCREENING 01/19/2013 BRANDON CARDENAS DO V25.01 CONTRACEPTION - ORAL CONTRACEPTION 01/19/2013 BRANDON CARDENAS DO V76.10 BREAST CANCER SCREENING 01/19/2013 JOSE ALBERTO SIMON JOHN R V25.01 CONTRACEPTION - ORAL CONTRACEPTION 01/19/2013 JOSE ALBERTO SIMON JOHN R V76.10 BREAST CANCER SCREENING 01/19/2013 WHITE HAYDESRUDI V25.01 CONTRACEPTION - ORAL CONTRACEPTION 01/19/2013 WHITE DDS, RUDI J V76.10 BREAST CANCER SCREENING 01/28/2013 462 sore throat 01/28/2013 462 sore throat 01/28/2013 JOSE ALBERTO SIMON JOHN R 462 sore throat 01/28/2013 HEENA PROPOSAL CONSULTANT, DEREK A 462 sore throat 01/28/2013 HEENA PROPOSAL CONSULTANT, DEREK A 462 sore throat 01/28/2013 HEENA PROPOSAL CONSULTANT, DEREK A 462 sore throat 01/28/2013 JOSE ALBERTO SIMON JOHN R 462 sore throat 01/28/2013 BRANDON CARDENAS DO K 462 sore throat 01/28/2013 JOSE ALBERTO SIMON JOHN R 462 sore throat 01/28/2013 HERMAN MCNEILL, RUDI Mcmullen 462 sore throat 06/22/2013 ABRAMS PROPOSAL CONSULTANT, JOHN R 789.06 ABDOMINAL PAIN EPIGASTRIC 06/22/2013 HEENA PROPOSAL CONSULTANT, DEREK A 789.06 ABDOMINAL PAIN EPIGASTRIC 06/22/2013 HEENA PROPOSAL CONSULTANT, DEREK A 789.06 ABDOMINAL PAIN EPIGASTRIC 06/22/2013 HEENA PROPOSAL CONSULTANT, DEREK A 789.06 ABDOMINAL PAIN EPIGASTRIC 06/22/2013 LUZ MARIA ABRAMS APRNRICIA R 789.06 ABDOMINAL PAIN EPIGASTRIC 06/22/2013 BRANDON CARDENAS DO K 789.06 ABDOMINAL PAIN EPIGASTRIC 06/22/2013 JOSE ALBERTO VILLAREALN, JOHN R 789.06 ABDOMINAL PAIN EPIGASTRIC 06/22/2013 HERMAN LOCKS, RUDI Mcmullen 789.06 ABDOMINAL PAIN EPIGASTRIC 08/21/2013 LUZ MARIA ABRAMS APRNRICIA R 724.2 BACK PAIN, LOWER 08/21/2013 HEENA PROPOSAL CONSULTANT, DEREK A 724.2 BACK PAIN, LOWER 08/21/2013 HEENA PROPOSAL CONSULTANT, DEREK A 724.2 BACK PAIN, LOWER 08/21/2013 HEENA PROPOSAL CONSULTANT, DEREK A 724.2 BACK PAIN, LOWER 08/21/2013 ABRAMS PROPOSAL CONSULTANT, JOHN R 724.2 BACK PAIN, LOWER 08/21/2013 CARDENAS DO, BRANDON K 724.2 BACK PAIN, LOWER 08/21/2013 ABRAMS PROPOSAL CONSULTANT, JOHN R 724.2 BACK PAIN, LOWER 08/21/2013 WHITE DDS, RUDI J 724.2 BACK PAIN, LOWER 01/14/2014 HEENA PROPOSAL CONSULTANT, DEREK A 599.0 URINARY TRACT INFECTION 01/14/2014 HEENA PROPOSAL CONSULTANT, DEREK A 788.1 DYSURIA 01/14/2014 HEENA PROPOSAL CONSULTANT, DEREK A 599.0 URINARY TRACT INFECTION 01/14/2014 HEENA PROPOSAL CONSULTANT, DEREK A 788.1 DYSURIA 01/14/2014 ABRAMS PROPOSAL CONSULTANT, JOHN R 599.0 URINARY TRACT INFECTION 01/14/2014 ABRAMS PROPOSAL CONSULTANT JOHN R 788.1 DYSURIA 01/14/2014 CARDENAS DO, BRANDON K 599.0 URINARY TRACT INFECTION 01/14/2014 CARDENAS DO, BRANDON K 788.1 DYSURIA 01/14/2014 ABRAMS PROPOSAL CONSULTANT JOHN R 599.0 URINARY TRACT INFECTION 01/14/2014 ABRAMS PROPOSAL CONSULTANT JOHN R 788.1 DYSURIA 01/14/2014 WHITE DDS, RUDI J 599.0 URINARY TRACT INFECTION 01/14/2014 WHITE DDS, RUDI J 788.1 DYSURIA 04/22/2014 HEENA PROPOSAL CONSULTANT, DEREK A V72.31 STRADDLE BUG EXAM, ROUTINE 04/22/2014 JOSE ALBERTO SIMON JOHN R V72.31 STRADDLE BUG EXAM, ROUTINE 04/22/2014 CARDENAS DO, BRANDON K V72.31 STRADDLE BUG EXAM, ROUTINE 04/22/2014 ABRAMS PROPOSAL CONSULTANT, JOHN R V72.31 STRADDLE BUG EXAM, ROUTINE 04/22/2014 WHITE DDS, RUDI J V72.31 STRADDLE BUG EXAM, ROUTINE 05/19/2014 JOSE ALBERTO SIMON JOHN R 786.2 COUGH 05/19/2014 CARDENAS DO, BRANDON K 786.2 COUGH 05/19/2014 ABRAMS PROPOSAL CONSULTANT, JOHN R 786.2 COUGH 05/19/2014 WHITE DDS, RUDI J 786.2 COUGH 09/23/2014 CARDENAS DO, BRANDON K 465.9 ACUTE UPPER RESPIRATORY INFECTIONS OF UNSPECIFIED SITE 09/23/2014 CARDENAS , BRANDON K 625.8 OTHER SPECIFIED SYMPTOMS ASSOCIATED WITH FEMALE GENITAL ORGANS 09/23/2014 ABRAMS PROPOSAL CONSULTANT, JOHN R 465.9 ACUTE UPPER RESPIRATORY INFECTIONS OF UNSPECIFIED SITE 09/23/2014 ABRAMS PROPOSAL CONSULTANT, JOHN R 625.8 OTHER SPECIFIED SYMPTOMS ASSOCIATED WITH FEMALE GENITAL ORGANS 09/23/2014 WHITE DDS, RUDI J 465.9 ACUTE UPPER RESPIRATORY INFECTIONS OF UNSPECIFIED SITE 09/23/2014 WHITE DDS, RUDI J 625.8 OTHER SPECIFIED SYMPTOMS ASSOCIATED WITH FEMALE GENITAL ORGANS 09/30/2014 ABRAMS PROPOSAL CONSULTANT, JOHN R 487.1 INFLUENZA 09/30/2014 WHITE DDS, RUDI J 487.1 INFLUENZA 06/18/2016 TATY AGUDELO, MAGDA Hammer Ot K35.80 UNSPECIFIED ACUTE APPENDICITIS 06/20/2016 TATY AGUDELO, MAGDA Hammer Ot K35.80 UNSPECIFIED ACUTE APPENDICITIS 01/08/2017 IVANNA JONES FREDDIE K Ot O23.41 UNSP INFCT OF URINARY TRACT IN 01/08/2017 IVANNA JONES FREDDIE K Ot O23.591 INFECTION OTH PRT GENITL TRCT IN PREGNAN 01/08/2017 IVANNA JONES FREDDIE K Ot Z3A.08 8 WEEKS GESTATION OF 01/08/2017 IVANNA JONES FREDDIE K Ot O23.41 UNSP INFCT OF URINARY TRACT IN 01/08/2017 IVANNA JONES FREDDIE K Ot O23.591 INFECTION OTH PRT GENITL TRCT IN PREGNAN 01/08/2017 IVANNA JNOESFREDDIE Ot Z3A.08 8 WEEKS GESTATION OF 03/08/2017 IVETTE VERONICA MD Ot O99.612 DISEASES OF THE DGSTV SYS COMP 03/08/2017 IVETTE VERONICA MD Ot R11.10 VOMITING, UNSPECIFIED 03/08/2017 IVETTE VERONICA MD Ot Z3A.17 17 WEEKS GESTATION OF 03/14/2017 IVETTE VERONICA MD Ot O99.612 DISEASES OF THE DGSTV SYS COMP 03/14/2017 IVETTE VERONICA MD Ot R11.10 VOMITING, UNSPECIFIED 03/14/2017 IVETTE VERONICA MD Ot Z3A.17 17 WEEKS GESTATION OF 04/09/2017 OLIVIA MALONEY DO Ot Z36 ENCOUNTER FOR SCREENING OF MOT 04/09/2017 OLIVIA MALONEY DO, Ot Z3A.22 22 WEEKS GESTATION OF 04/19/2017 OLIVIA MALONEY DO Ot Z36 ENCOUNTER FOR SCREENING OF MOT 04/19/2017 OLIVIA MALONEY DO, Ot Z3A.22 22 WEEKS GESTATION OF 07/07/2017 OLIVIA MALONEY DO Ot O60.03 LABOR WITHOUT DELIVERY, THIRD TR 07/07/2017 OLIVIA MALONEY DO, Ot Z3A.33 33 WEEKS GESTATION OF 07/09/2017 OLIVIA MALONEY DO, Ot O47.03 FALSE LABOR BEFORE 37 COMPLETED WEEKS OF 07/09/2017 OLIVIA MALONEY DO, Ot Z3A.34 34 WEEKS GESTATION OF 07/26/2017 OLIVIA MALONEY DO, Ot O09.213 SUPRVSN OF PREG W HISTORY OF PRE-TERM LA 07/26/2017 OLIVIA MALONEY DO, Ot O47.1 FALSE LABOR AT OR AFTER 37 COMPLETED WEE 07/26/2017 OLIVIA MALONEY DO, Ot Z3A.37 37 WEEKS GESTATION OF 08/05/2017 DAYANA ZACARIAS DO Ot O70.0 FIRST DEGREE PERINEAL LACERATION DURING 08/05/2017 DAYANA ZACARIAS DO Ot O99.824 STREPTOCOCCUS B CARRIER STATE COMPLICATI 08/05/2017 DAYANA ZACARIAS DO Ot Z23 ENCOUNTER FOR IMMUNIZATION 08/05/2017 DAYANA ZACARIAS DO Ot Z37.0 SINGLE LIVE 08/05/2017 DAYANA ZACARIAS DO, Ot Z3A.38 38 WEEKS GESTATION OF 08/28/2018 OLIVIA MALONEY DO Ot Z36 ENCOUNTER FOR SCREENING OF MOT 08/28/2018 OLIVIA MALONEY DO, Ot Z3A.22 22 WEEKS GESTATION OF 08/28/2018 FREDDIE GONCALVES DO Ot N39.0 URINARY TRACT INFECTION, SITE NOT SPECIF 08/28/2018 FREDDIE GONCALVES DO Ot R10.32 LEFT LOWER QUADRANT PAIN 08/28/2018 FREDDIE GONCALVES DO Ot Z80.3 FAMILY HISTORY OF MALIGNANT NEOPLASM OF 08/28/2018 FREDDIE GONCALVES DO Ot Z87.891 PERSONAL HISTORY OF NICOTINE DEPENDENCE 08/28/2018 IVANNA FREDDIE JONES K Ot Z90.89 ACQUIRED ABSENCE OF OTHER ORGANS 09/01/2018 IVANNA FREDDIE JONES Ot N39.0 URINARY TRACT INFECTION, SITE NOT SPECIF 09/01/2018 IVANNA FREDDIE JONES Ot R10.32 LEFT LOWER QUADRANT PAIN 09/01/2018 IVANNA FREDDIE JONES Ot Z80.3 FAMILY HISTORY OF MALIGNANT NEOPLASM OF 09/01/2018 IVANNA FREDDIE JONES Ot Z87.891 PERSONAL HISTORY OF NICOTINE DEPENDENCE 09/01/2018 IVANNA FREDDIE JONES Ot Z90.89 ACQUIRED ABSENCE OF OTHER ORGANS 09/03/2018 IVANNA FREDDIE JONES Ot N39.0 URINARY TRACT INFECTION, SITE NOT SPECIF 09/03/2018 IVANNA FREDDIE JONES Ot R10.32 LEFT LOWER QUADRANT PAIN 09/03/2018 IVANNA FREDDIE JONES Ot Z80.3 FAMILY HISTORY OF MALIGNANT NEOPLASM OF 09/03/2018 FREDDIE GONCALVES DO Ot Z87.891 PERSONAL HISTORY OF NICOTINE DEPENDENCE 09/03/2018 FREDDIE GONCALVES DO Ot Z90.89 ACQUIRED ABSENCE OF OTHER ORGANS 11/12/2018 ERNIE GIBSON DO Ot Z01.818 ENCOUNTER FOR OTHER PREPROCEDURAL EXAMIN 11/13/2018 OLIVIA MALONEY DO Ot Z36 ENCOUNTER FOR SCREENING OF MOT 11/13/2018 OLIVIA MALONEY DO Ot Z3A.22 22 WEEKS GESTATION OF 11/13/2018 ERNIE GIBSON DO Ot Z01.818 ENCOUNTER FOR OTHER PREPROCEDURAL EXAMIN 11/13/2018 ERNIE GIBSON DO Ot Z01.818 ENCOUNTER FOR OTHER PREPROCEDURAL EXAMIN Procedures Code Description Performed By Performed On 73.4 02/26/2011 73.59 02/26/2011 18893 URINE TEST (IN- HOUSE) 01/19/2013 82219 GC/CHLAM URINE (FORMERLY [facility]) 01/20/2013 14279 STREP A (IN-HOUSE) 01/28/2013 45286 UA W/ CULTURE IF INDICATED 08/21/2013 22066 URINE TEST (IN- HOUSE) 08/21/2013 00678 TEST, URINE (IN- HOUSE) 01/14/2014 59760 UA W/ CULTURE IF INDICATED 01/14/2014 20550 CULTURE URINE 01/15/2014 82442 TEST, URINE (IN- HOUSE) 04/22/2014 57460 GC/CHLAM URINE (STATE) 04/23/2014 03213 UA W/ CULTURE IF INDICATED 09/23/2014 88379 INFLUENZA A & B (IN-HOUSE) 09/23/2014 01490 CULTURE URINE 09/26/2014 39648 INFLUENZA A & B (IN-HOUSE) 09/30/2014 [id number] REPAIR PERINEUM SKIN, EXTERNAL APPROACH 08/04/2017 [id number] DELIVERY OF PRODUCTS OF CONCEPTION, EXTE 08/04/2017 Results Test Result Range Complete urinalysis with reflex to culture - 06/17/16 14:20 Urine color determination YELLOW NRG Urine clarity determination CLEAR NRG Urine pH measurement by test strip 6 5-9 Specific gravity of urine by test strip 1.015 1.016- 1.022 Urine protein assay by test strip, semi-quantitative NEGATIVE NEGATIVE Urine glucose detection by automated test strip NEGATIVE NEGATIVE Erythrocytes detection in urine sediment by light microscopy NEGATIVE NEGATIVE Urine ketones detection by automated test strip NEGATIVE NEGATIVE Urine nitrite detection by test strip NEGATIVE NEGATIVE Urine total bilirubin detection by test strip NEGATIVE NEGATIVE Urine urobilinogen measurement by automated test strip (mass/volume) NORMAL NORMAL Urine leukocyte esterase detection by dipstick 1+ NEGATIVE Automated urine sediment erythrocyte count by microscopy (number/high power field) NONE NRG Automated urine sediment leukocyte count by microscopy (number/high power field ) [HPF] NRG Bacteria detection in urine sediment by light microscopy FEW NRG Squamous epithelial cells detection in urine sediment by light microscopy 2-5 NRG Crystals detection in urine sediment by light microscopy NONE NRG Casts detection in urine sediment by light microscopy NONE NRG Mucus detection in urine sediment by light microscopy NEGATIVE NRG Complete urinalysis with reflex to culture YES NRG Bacterial urine culture - 06/17/16 14:20 Bacterial urine culture [id number] NRG COLONY COUNT 10,000/ML - 100,000/ML NRG Complete blood count (CBC) with automated white blood cell (WBC) differential - 06/17/16 14:32 Blood leukocytes automated count (number/volume) 7.7 10*3/uL 4.3-11.0 Blood erythrocytes automated count (number/volume) 4.93 10*6/uL 4.35-5.85 Venous blood hemoglobin measurement (mass/volume) 14.8 g/dL 11.5-16.0 Blood hematocrit (volume fraction) 43 % 35-52 Automated erythrocyte mean corpuscular volume 86 [foz_us] 80-99 Automated erythrocyte mean corpuscular hemoglobin (mass per erythrocyte) 30 pg 25-34 Automated erythrocyte mean corpuscular hemoglobin concentration measurement ( mass/volume) 35 g/dL 32-36 Automated erythrocyte distribution width ratio 11.8 % 10.0-14.5 Automated blood platelet count (count/volume) 298 10*3/uL 130-400 Automated blood platelet mean volume measurement 9.9 [foz_us] 7.4-10.4 Automated blood neutrophils/100 leukocytes 52 % 42-75 Automated blood lymphocytes/100 leukocytes 39 % 12-44 Blood monocytes/100 leukocytes 7 % 0-12 Automated blood eosinophils/100 leukocytes 2 % 0-10 Automated blood basophils/100 leukocytes 1 % 0-10 Blood neutrophils automated count (number/volume) 4.0 10*3 1.8-7.8 Blood lymphocytes automated count (number/volume) 3.0 10*3 1.0-4.0 Blood monocytes automated count (number/volume) 0.5 10*3 0.0-1.0 Automated eosinophil count 0.1 10*3/uL 0.0-0.3 Automated blood basophil count (count/volume) 0.1 10*3/uL 0.0-0.1 Comprehensive metabolic panel - 06/17/16 14:32 Serum or plasma sodium measurement (moles/volume) 140 mmol/L 135-145 Serum or plasma potassium measurement (moles/volume) 4.2 mmol/L 3.6-5.0 Serum or plasma chloride measurement (moles/volume) 104 mmol/L 98-107 Carbon dioxide 27 mmol/L 21-32 Serum or plasma anion gap determination (moles/volume) 9 mmol/L 5-14 Serum or plasma urea nitrogen measurement (mass/volume) 12 mg/dL 7-18 Serum or plasma creatinine measurement (mass/volume) 0.76 mg/dL 0.60-1.30 Serum or plasma urea nitrogen/creatinine mass ratio 16 NRG Serum or plasma creatinine measurement with calculation of estimated glomerular filtration rate > NRG Serum or plasma glucose measurement (mass/volume) 85 mg/dL 70-105 Serum or plasma calcium measurement (mass/volume) 10.0 mg/dL 8.5-10.1 Serum or plasma total bilirubin measurement (mass/volume) 0.5 mg/dL 0.1-1.0 Serum or plasma alkaline phosphatase measurement (enzymatic activity/volume) 42 U/L 40-136 Serum or plasma aspartate aminotransferase measurement (enzymatic activity/ volume) 19 U/L 5-34 Serum or plasma alanine aminotransferase measurement (enzymatic activity/volume ) 19 U/L 0-55 Serum or plasma protein measurement (mass/volume) 7.4 g/dL 6.4-8.2 Serum or plasma albumin measurement (mass/volume) 4.3 g/dL 3.2-4.5 Serum or plasma C reactive protein measurement (mass/volume) - 06/17/16 14:32 Serum or plasma C reactive protein measurement (mass/volume) 1.51 mg /dL 0.00-0.50 Complete urinalysis with reflex to culture - 01/08/17 04:00 Urine color determination YELLOW NRG Urine clarity determination SLIGHTLY CLOUDY NRG Urine pH measurement by test strip 7 5-9 Specific gravity of urine by test strip 1.015 1.016- 1.022 Urine protein assay by test strip, semi-quantitative 1+ NEGATIVE Urine glucose detection by automated test strip NEGATIVE NEGATIVE Erythrocytes detection in urine sediment by light microscopy 1+ NEGATIVE Urine ketones detection by automated test strip NEGATIVE NEGATIVE Urine nitrite detection by test strip NEGATIVE NEGATIVE Urine total bilirubin detection by test strip NEGATIVE NEGATIVE Urine urobilinogen measurement by automated test strip (mass/volume) 1 mg/dL NORMAL Urine leukocyte esterase detection by dipstick 3+ NEGATIVE Automated urine sediment erythrocyte count by microscopy (number/high power field) [HPF] NRG Automated urine sediment leukocyte count by microscopy (number/high power field ) [HPF] NRG Bacteria detection in urine sediment by light microscopy LARGE NRG Squamous epithelial cells detection in urine sediment by light microscopy >50 NRG Crystals detection in urine sediment by light microscopy NONE NRG Casts detection in urine sediment by light microscopy NONE NRG Mucus detection in urine sediment by light microscopy MODERATE NRG Complete urinalysis with reflex to culture YES NRG Bacterial urine culture - 01/08/17 04:00 Bacterial urine culture FOOTNOTE NRG Bacteria identification in genital specimen by aerobe culture - 01/08/17 04:05 FREE TEXT EXTERNAL PLUS NORMAL MIRTHA NRG QUANTITY OF GROWTH Abundant Growth NRG Bacteria identification in genital specimen by aerobe culture [id number] NRG Microscopic examination by KWAME preparation - 01/08/17 04:05 Microscopic examination by KWAME preparation TNP NRG Microscopic examination by wet preparation - 01/08/17 04:05 WET PREP RESULTS ER 01/08 04:24 BY Katarzyna MATOS NRG Chlamydia trachomatis DNA detection by probe and signal amplification method - 01/08/17 04:05 Chlamydia trachomatis DNA detection by probe and target amplification method Negative Negative Neisseria gonorrhoeae DNA detection by probe and signal amplification method - 01/08/17 04:05 Gonorrhea amp DNA-urine Negative Negative Complete urinalysis with reflex to culture - 03/08/17 13:10 Urine color determination YELLOW NRG Urine clarity determination CLEAR NRG Urine pH measurement by test strip 6 5-9 Specific gravity of urine by test strip 1.015 1.016- 1.022 Urine protein assay by test strip, semi-quantitative NEGATIVE NEGATIVE Urine glucose detection by automated test strip NEGATIVE NEGATIVE Erythrocytes detection in urine sediment by light microscopy NEGATIVE NEGATIVE Urine ketones detection by automated test strip 2+ NEGATIVE Urine nitrite detection by test strip NEGATIVE NEGATIVE Urine total bilirubin detection by test strip NEGATIVE NEGATIVE Urine urobilinogen measurement by automated test strip (mass/volume) NORMAL NORMAL Urine leukocyte esterase detection by dipstick NEGATIVE NEGATIVE Automated urine sediment erythrocyte count by microscopy (number/high power field) NONE NRG Automated urine sediment leukocyte count by microscopy (number/high power field ) RARE NRG Bacteria detection in urine sediment by light microscopy TRACE NRG Squamous epithelial cells detection in urine sediment by light microscopy 10-25 NRG Crystals detection in urine sediment by light microscopy NONE NRG Casts detection in urine sediment by light microscopy NONE NRG Mucus detection in urine sediment by light microscopy MODERATE NRG Complete urinalysis with reflex to culture NO NRG Complete blood count (CBC) with automated white blood cell (WBC) differential - 03/08/17 13:45 Blood leukocytes automated count (number/volume) 10.4 10*3/uL 4.3-11.0 Blood erythrocytes automated count (number/volume) 4.24 10*6/uL 4.35-5.85 Venous blood hemoglobin measurement (mass/volume) 13.1 g/dL 11.5-16.0 Blood hematocrit (volume fraction) 37 % 35-52 Automated erythrocyte mean corpuscular volume 88 [foz_us] 80-99 Automated erythrocyte mean corpuscular hemoglobin (mass per erythrocyte) 31 pg 25-34 Automated erythrocyte mean corpuscular hemoglobin concentration measurement ( mass/volume) 35 g/dL 32-36 Automated erythrocyte distribution width ratio 12.8 % 10.0-14.5 Automated blood platelet count (count/volume) 273 10*3/uL 130-400 Automated blood platelet mean volume measurement 9.8 [foz_us] 7.4-10.4 Automated blood neutrophils/100 leukocytes 73 % 42-75 Automated blood lymphocytes/100 leukocytes 21 % 12-44 Blood monocytes/100 leukocytes 5 % 0-12 Automated blood eosinophils/100 leukocytes 1 % 0-10 Automated blood basophils/100 leukocytes 0 % 0-10 Blood neutrophils automated count (number/volume) 7.6 10*3 1.8-7.8 Blood lymphocytes automated count (number/volume) 2.2 10*3 1.0-4.0 Blood monocytes automated count (number/volume) 0.5 10*3 0.0-1.0 Automated eosinophil count 0.1 10*3/uL 0.0-0.3 Automated blood basophil count (count/volume) 0.0 10*3/uL 0.0-0.1 Comprehensive metabolic panel - 03/08/17 13:45 Serum or plasma sodium measurement (moles/volume) 136 mmol/L 135-145 Serum or plasma potassium measurement (moles/volume) 3.5 mmol/L 3.6-5.0 Serum or plasma chloride measurement (moles/volume) 105 mmol/L 98-107 Carbon dioxide 23 mmol/L 21-32 Serum or plasma anion gap determination (moles/volume) 8 mmol/L 5-14 Serum or plasma urea nitrogen measurement (mass/volume) 7 mg/dL 7-18 Serum or plasma creatinine measurement (mass/volume) 0.66 mg/dL 0.60-1.30 Serum or plasma urea nitrogen/creatinine mass ratio 11 NRG Serum or plasma creatinine measurement with calculation of estimated glomerular filtration rate > NRG Serum or plasma glucose measurement (mass/volume) 90 mg/dL 70-105 Serum or plasma calcium measurement (mass/volume) 9.1 mg/dL 8.5-10.1 Serum or plasma total bilirubin measurement (mass/volume) 0.5 mg/dL 0.1-1.0 Serum or plasma alkaline phosphatase measurement (enzymatic activity/volume) 30 U/L 40-136 Serum or plasma aspartate aminotransferase measurement (enzymatic activity/ volume) 24 U/L 5-34 Serum or plasma alanine aminotransferase measurement (enzymatic activity/volume ) 29 U/L 0-55 Serum or plasma protein measurement (mass/volume) 6.7 g/dL 6.4-8.2 Serum or plasma albumin measurement (mass/volume) 3.6 g/dL 3.2-4.5 Complete urinalysis with reflex to culture - 07/06/17 20:00 Urine color determination YELLOW NRG Urine clarity determination VERY CLOUDY NRG Urine pH measurement by test strip 6.5 5-9 Specific gravity of urine by test strip 1.020 1.016- 1.022 Urine protein assay by test strip, semi-quantitative 1+ NEGATIVE Urine glucose detection by automated test strip NEGATIVE NEGATIVE Erythrocytes detection in urine sediment by light microscopy NEGATIVE NEGATIVE Urine ketones detection by automated test strip NEGATIVE NEGATIVE Urine nitrite detection by test strip NEGATIVE NEGATIVE Urine total bilirubin detection by test strip NEGATIVE NEGATIVE Urine urobilinogen measurement by automated test strip (mass/volume) 1 mg/dL NORMAL Urine leukocyte esterase detection by dipstick 2+ NEGATIVE Automated urine sediment erythrocyte count by microscopy (number/high power field) NONE NRG Automated urine sediment leukocyte count by microscopy (number/high power field ) [HPF] NRG Bacteria detection in urine sediment by light microscopy FEW NRG Squamous epithelial cells detection in urine sediment by light microscopy >50 NRG Crystals detection in urine sediment by light microscopy NONE NRG Casts detection in urine sediment by light microscopy NONE NRG Mucus detection in urine sediment by light microscopy NEGATIVE NRG Complete urinalysis with reflex to culture YES NRG Bacterial urine culture - 07/06/17 20:00 URINE CULTURE RESULTS >100,000/ML NRG Complete urinalysis with reflex to culture - 07/06/17 22:05 Urine color determination YELLOW NRG Urine clarity determination CLEAR NRG Urine pH measurement by test strip 7 5-9 Specific gravity of urine by test strip 1.010 1.016- 1.022 Urine protein assay by test strip, semi-quantitative NEGATIVE NEGATIVE Urine glucose detection by automated test strip NEGATIVE NEGATIVE Erythrocytes detection in urine sediment by light microscopy 1+ NEGATIVE Urine ketones detection by automated test strip NEGATIVE NEGATIVE Urine nitrite detection by test strip NEGATIVE NEGATIVE Urine total bilirubin detection by test strip NEGATIVE NEGATIVE Urine urobilinogen measurement by automated test strip (mass/volume) NORMAL NORMAL Urine leukocyte esterase detection by dipstick 1+ NEGATIVE Automated urine sediment erythrocyte count by microscopy (number/high power field) [HPF] NRG Automated urine sediment leukocyte count by microscopy (number/high power field ) [HPF] NRG Bacteria detection in urine sediment by light microscopy NONE NRG Squamous epithelial cells detection in urine sediment by light microscopy 5-10 NRG Crystals detection in urine sediment by light microscopy NONE NRG Casts detection in urine sediment by light microscopy NONE NRG Mucus detection in urine sediment by light microscopy NEGATIVE NRG Complete urinalysis with reflex to culture NO NRG Bacterial urine culture - 07/06/17 22:05 Bacterial urine culture NG NRG Complete urinalysis with reflex to culture - 07/26/17 13:30 Urine color determination YELLOW NRG Urine clarity determination CLEAR NRG Urine pH measurement by test strip 8 5-9 Specific gravity of urine by test strip 1.010 1.016- 1.022 Urine protein assay by test strip, semi-quantitative NEGATIVE NEGATIVE Urine glucose detection by automated test strip NEGATIVE NEGATIVE Erythrocytes detection in urine sediment by light microscopy NEGATIVE NEGATIVE Urine ketones detection by automated test strip 1+ NEGATIVE Urine nitrite detection by test strip NEGATIVE NEGATIVE Urine total bilirubin detection by test strip NEGATIVE NEGATIVE Urine urobilinogen measurement by automated test strip (mass/volume) NORMAL NORMAL Urine leukocyte esterase detection by dipstick 2+ NEGATIVE Automated urine sediment erythrocyte count by microscopy (number/high power field) NONE NRG Automated urine sediment leukocyte count by microscopy (number/high power field ) [HPF] NRG Bacteria detection in urine sediment by light microscopy FEW NRG Squamous epithelial cells detection in urine sediment by light microscopy 5-10 NRG Crystals detection in urine sediment by light microscopy NONE NRG Casts detection in urine sediment by light microscopy NONE NRG Mucus detection in urine sediment by light microscopy NEGATIVE NRG Complete urinalysis with reflex to culture YES NRG Bacterial urine culture - 07/26/17 13:30 URINE CULTURE RESULTS <10,000/ML NRG Complete blood count (CBC) with automated white blood cell (WBC) differential - 08/03/17 00:11 Blood leukocytes automated count (number/volume) 18.9 10*3/uL 4.3-11.0 Blood erythrocytes automated count (number/volume) 4.07 10*6/uL 4.35-5.85 Venous blood hemoglobin measurement (mass/volume) 12.5 g/dL 11.5-16.0 Blood hematocrit (volume fraction) 36 % 35-52 Automated erythrocyte mean corpuscular volume 89 [foz_us] 80-99 Automated erythrocyte mean corpuscular hemoglobin (mass per erythrocyte) 31 pg 25-34 Automated erythrocyte mean corpuscular hemoglobin concentration measurement ( mass/volume) 35 g/dL 32-36 Automated erythrocyte distribution width ratio 12.3 % 10.0-14.5 Automated blood platelet count (count/volume) 242 10*3/uL 130-400 Automated blood platelet mean volume measurement 10.7 [foz_us] 7.4-10.4 Automated blood neutrophils/100 leukocytes 83 % 42-75 Automated blood lymphocytes/100 leukocytes 12 % 12-44 Blood monocytes/100 leukocytes 5 % 0-12 Automated blood eosinophils/100 leukocytes 0 % 0-10 Automated blood basophils/100 leukocytes 0 % 0-10 Blood neutrophils automated count (number/volume) 15.6 10*3 1.8-7.8 Blood lymphocytes automated count (number/volume) 2.3 10*3 1.0-4.0 Blood monocytes automated count (number/volume) 1.0 10*3 0.0-1.0 Automated eosinophil count 0.0 10*3/uL 0.0-0.3 Automated blood basophil count (count/volume) 0.0 10*3/uL 0.0-0.1 Blood type T Indirect antibody screen panel - 08/03/17 00:11 ABO+Rh group AP [facility] Transfusion band number [id number] [facility] Blood group antibody screen NEGATIVE [facility] Complete blood count (CBC) with automated white blood cell (WBC) differential - 08/05/17 05:34 Blood leukocytes automated count (number/volume) 11.4 10*3/uL 4.3-11.0 Blood erythrocytes automated count (number/volume) 3.70 10*6/uL 4.35-5.85 Venous blood hemoglobin measurement (mass/volume) 11.4 g/dL 11.5-16.0 Blood hematocrit (volume fraction) 34 % 35-52 Automated erythrocyte mean corpuscular volume 91 [foz_us] 80-99 Automated erythrocyte mean corpuscular hemoglobin (mass per erythrocyte) 31 pg 25-34 Automated erythrocyte mean corpuscular hemoglobin concentration measurement ( mass/volume) 34 g/dL 32-36 Automated erythrocyte distribution width ratio 12.6 % 10.0-14.5 Automated blood platelet count (count/volume) 233 10*3/uL 130-400 Automated blood platelet mean volume measurement 10.1 [foz_us] 7.4-10.4 Automated blood neutrophils/100 leukocytes 61 % 42-75 Automated blood lymphocytes/100 leukocytes 32 % 12-44 Blood monocytes/100 leukocytes 6 % 0-12 Automated blood eosinophils/100 leukocytes 1 % 0-10 Automated blood basophils/100 leukocytes 0 % 0-10 Blood neutrophils automated count (number/volume) 7.0 10*3 1.8-7.8 Blood lymphocytes automated count (number/volume) 3.7 10*3 1.0-4.0 Blood monocytes automated count (number/volume) 0.6 10*3 0.0-1.0 Automated eosinophil count 0.1 10*3/uL 0.0-0.3 Automated blood basophil count (count/volume) 0.1 10*3/uL 0.0-0.1 Complete urinalysis with reflex to culture - 08/28/18 19:33 Urine color determination YELLOW NRG Urine clarity determination CLEAR NRG Urine pH measurement by test strip 6 5-9 Specific gravity of urine by test strip 1.025 1.016- 1.022 Urine protein assay by test strip, semi-quantitative NEGATIVE NEGATIVE Urine glucose detection by automated test strip NEGATIVE NEGATIVE Erythrocytes detection in urine sediment by light microscopy NEGATIVE NEGATIVE Urine ketones detection by automated test strip NEGATIVE NEGATIVE Urine nitrite detection by test strip NEGATIVE NEGATIVE Urine total bilirubin detection by test strip NEGATIVE NEGATIVE Urine urobilinogen measurement by automated test strip (mass/volume) NORMAL NORMAL Urine leukocyte esterase detection by dipstick 1+ NEGATIVE Automated urine sediment erythrocyte count by microscopy (number/high power field) [HPF] NRG Automated urine sediment leukocyte count by microscopy (number/high power field ) [HPF] NRG Bacteria detection in urine sediment by light microscopy FEW NRG Squamous epithelial cells detection in urine sediment by light microscopy 5-10 NRG Crystals detection in urine sediment by light microscopy NONE NRG Casts detection in urine sediment by light microscopy NONE NRG Mucus detection in urine sediment by light microscopy SMALL NRG Complete urinalysis with reflex to culture NO NRG Bacterial urine culture - 08/28/18 19:33 Bacterial urine culture NG NRG Encounters ACCT No. Visit Date/Time Discharge Status Pt. Type Provider Facility Loc./Unit Complaint [id number] 01/03/2015 13:54:00 01/03/2015 23:59:59 CLS Outpatient RUDI SUTTON DDS [id number] 09/30/2014 15:13:00 09/30/2014 23:59:59 CLS Outpatient LUZ MARIA ABRAMS APRNCARRINGTON Dave [id number] 09/23/2014 13:47:00 09/23/2014 23:59:59 CLS Outpatient BRANDON CARDENAS DO [id number] 05/19/2014 15:39:00 05/19/2014 23:59:59 CLS Outpatient LUZ MARIA ABRAMS APR[facility]INGTON Dave [id number] 04/22/2014 17:46:00 04/22/2014 23:59:59 CLS Outpatient HEENA VILLAREALDaphnie DEREK A [id number] 01/14/2014 13:30:00 01/14/2014 23:59:59 CLS Outpatient HEENA VILLAREALDEREK Eller [id number] 09/30/2013 11:55:00 09/30/2013 23:59:59 CLS Outpatient HEENA VILLAREALDEREK Eller [id number] 08/21/2013 12:42:00 08/21/2013 23:59:59 CLS Outpatient LUZ MARIA ABRAMS [facility] Dave [id number] 01/19/2013 10:45:00 01/19/2013 23:59:59 CLS Outpatient [id number] 04/30/2013 13:43:00 Document Registration [id number] 01/28/2013 13:01:00 Document Registration [id number] 11/13/2018 15:01:00 11/13/2018 16:08:00 DIS Outpatient ERNIE GIBSON DO [facility] PREOP EXC.LT ING.MASS, POS.HERNIA [id number] 08/28/2018 19:19:00 08/28/2018 20:32:00 DIS Emergency IVANNA FREDDIE JONES [facility] ER FEELS ABNORMAL GROWTH IN ABD [id number] 08/04/2017 00:01:00 08/05/2017 19:00:00 DIS Inpatient DAYANA ZACARIAS DO [facility] LDRP LABOR [id number] 07/26/2017 13:15:00 07/26/2017 14:40:00 DIS Outpatient OLIVIA MALONEY DO [facility] WSo CONTRACTIONS [id number] 07/08/2017 17:26:00 07/09/2017 10:38:00 DIS Outpatient OLIVIA MALONEY DO [facility] WSo CONTRACTIONS [id number] 07/06/2017 19:56:00 07/07/2017 13:45:00 DIS Outpatient OLIVIA MALONEY DO [facility] WSo CONTRACTIONS [id number] 04/08/2017 10:06:00 04/08/2017 23:59:59 CLS Outpatient OLIVIA MALONEY DO [facility] RAD [id number] 03/08/2017 12:53:00 03/08/2017 14:55:00 DIS Emergency GLENYS AGUDELO, IVETTE Patel [facility] ER VOMITING 17 WKS PREG [id number] 01/08/2017 03:35:00 01/08/2017 04:24:00 DIS Emergency FREDDIE GONCALVES DO [facility] ER YEAST INFECTION,8 WKS PREG [id number] 06/17/2016 16:39:00 06/18/2016 09:20:00 DIS Outpatient TATY AGUDELO, MAGDA Hammer [facility] LAP KEVYN [id number] 11/14/2018 07:40:00 ACT Outpatient ERNIE GIBSON DO [facility] LEFT INGUINAL MASS, POS. HERNIA [id number] 02/26/2011 05:55:00 Document Registration [id number] 10/27/2018 13:00:00 10/27/2018 23:59:59 CLS [facility]
[2018-11-14] MEDS ORDERED: LACTATED RINGERS 1,000 ML IV PRN (07:49)
[2018-11-14] MEDS ORDERED: CATHETER FLUSH 10 ML SYR IV PRN (08:00)
[2018-11-14] MEDS ORDERED: ceFAZolin 2 GM IV Premixed 50 ML IV ONE (08:00)
[2018-11-14] MEDS ORDERED: ROCURONIUM 10 MG/ML 5 ML SYRINGE IV ONE (08:03)
[2018-11-14] MEDS ORDERED: proPOfol 200 MG/20 ML (DIPRIVAN) VIAL IV ONE (08:03)
[2018-11-14] MEDS ORDERED: SEVOFLURANE (ULTANE) 15 ML INHAL SOLN ONE (08:03)
[2018-11-14] MEDS ORDERED: DEXAMETHASONE 10 MG/ML (DECADRON) 1 ML VIAL ONE (08:03)
[2018-11-14] MEDS ORDERED: LIDOCAINE PF 2% 5 ML (XYLOCAINE) VIAL ONE (08:03)
[2018-11-14] MEDS ORDERED: ONDANSETRON 4 MG/2 ML (SDV) Z0FRAN ONE (08:03)
[2018-11-14] MEDS ORDERED: fentaNYL INJECTION 100 MCG/2 ML AMP ONE (08:04)
[2018-11-14] MEDS ORDERED: MIDAZOLAM 2 MG/2 ML (VERSED) VIAL ONE (08:04)
[2018-11-14 08:17] VITALS: BP 116/83
--- NOTE | 2018-11-14 09:15 | Progress Note-Pre Operative ---
Pre-Operative Progress Note H&P Reviewed The H&P was reviewed, patient examined and no changes noted. Time Seen by Provider: 09:06 Date H&P Reviewed: Nov 14, 2018 Time H&P Reviewed: 09:07 Pre-Operative Diagnosis: Left inguinal mass possible hernia ERNIE GIBSON DO Nov 14, 2018 09:15
[2018-11-14] MEDS ORDERED: BUP/EPI 0.5% 1:200,000 (SENSORCAINE) 30 ML VIAL ONE (09:18)
[2018-11-14] MEDS ORDERED: LIDOCAINE 1% INJ 20 ML 20 ML VIAL ONE (09:18)
[2018-11-14] MEDS ORDERED: KETOROLAC 30 MG/ML VIAL ONE (09:44)
--- NOTE | 2018-11-14 09:52 | Progress Note-Post Operative ---
Post-Operative Progess Note Surgeon (s)/Candy Wrapping Machine Operator (s) Surgeon ERNIE GIBSON DO Candy Wrapping Machine Operator: none Pre-Operative Diagnosis Left inguinal mass possible hernia Post-Operative Diagnosis Incarcerated Spigelian hernia Procedure & Operative Findings Date of Procedure 11/14/18 Procedure Performed/Findings Spigelian Herniarraphy Anesthesia Type GET Estimated Blood Loss Estimated blood loss (mL): scant Specimens/Packing Specimens Removed hernia contents ERNIE GIBSON DO Nov 14, 2018 09:52
[2018-11-14] MEDS ORDERED: ACHD5005 PO (09:53)
--- NOTE | 2018-11-14 09:54 | Discharge Inst-Surgical ---
Discharge Inst-Surgical Depart Medication/Instructions New, Converted or Re-Newed RX: RX Given to Pt/Family Patient Instructions Follow up Appt: Make appointment for 1 week. [phone] Instructions: No lifting greater than 20 pounds. No strenuous activity. May shower in 24 hours, no tub bath or soaking. Use incentive spirometer at home as directed. No Smoking Skin/Wound Care: May remove bandages in am. You need to leave the Dermabond on incision it will fall off on it's own. Symptoms to Report: Appetite Changes, Extremity Discoloration, Numbness/Tingling, Swelling Increased , Bleeding Excessive, Eyesight Changes, Pain Increased, Urine Color Change, Constipation(Persistent), Fever over 101 degree F, Pain/Pressure in chest, Urinating Difficulty, Cough Up/Vomit Blood, Heart Beat Irreg/Pounding, Pain/ Pressure in jaw, Cramps in feet or legs, Lightheadedness, Pain/Pressure in shoulder, Diarrhea(Persistent), Memory Changes Suddenly, Questions/Concerns, Weight gain consecutive days, Dizziness/Fainting, Nausea/Vomiting, Shortness of Breath, Weight gain over 2 pounds If questions or concerns contact your physician Or seek help at emergency department. Activity Activity as Tolerated: Yes Activity Instructions: Avoid Stress to Incision Driving Instructions: No Driving/Refer to Dr. Vences Discharge Diet: No Restrictions Diet After 24 Hours: Clear Liquid if Nauseous If Any Problems/Questions/Issu: Contact Your Physician, Go to Emergency Room Skin/Wound Care Infection Signs and Symptoms: Increased Redness, Foul Odor of Wound, Increased Drainage, Skin Itchy or Has a Rash, Increased Swelling, Temperature Above 101 F Bathing Instructions: Shower Stitches/[place]/Dermabond Dis: Dermabond Ice Pack: Ice On and Off Site (as needed for pain) ERNIE GIBSON DO Nov 14, 2018 09:54
[2018-11-14] MEDS ORDERED: ONDANSETRON 4 MG/2 ML (SDV) Z0FRAN IVP PRN (10:00)
[2018-11-14] MEDS ORDERED: HYDROmorphone 2 MG/ML VIAL (DILAUDID) IV ONE (10:00)
[2018-11-14 11:00] VITALS: BP 116/71
[2018-11-14 11:30] VITALS: BP 113/70
[2018-11-14 12:00] VITALS: BP 118/69
--- NOTE | 2018-11-14 12:53 | Anesthesia-General Post-Op ---
General Patient Condition Mental Status/LOC: Same as Preop Cardiovascular: Satisfactory Nausea/Vomiting: Absent Respiratory: Satisfactory Pain: Controlled Complications: Absent Post Op Complications Complications None Follow Up Care/Instructions Patient Instructions None needed. Anesthesia/Patient Condition Patient Condition Patient is doing well, no complaints, stable vital signs, no apparent adverse anesthesia problems. No complications reported per nursing. TAMMY HERNANDES CRNA Nov 14, 2018 12:53
[2018-11-14 13:06] VITALS: BP 118/69
--- NOTE | 2018-11-14 16:33 | OPERATIVE REPORT ---
DATE OF SERVICE: 11/14/2018 PREOPERATIVE DIAGNOSIS: Left inguinal mass, possible hernia. POSTOPERATIVE DIAGNOSES: Left spigelian hernia. PROCEDURE: Left spigelian hernia repair. SURGEON: Keyur Mas DO [employer] SCIENCE TEACHER: None. ANESTHESIA: General endotracheal tube or LMA. SPECIMEN: Hernia contents. BLOOD LOSS: Scant. FLUIDS: Per anesthesia. POSTOPERATIVE CONDITION: Stable. INDICATION FOR PROCEDURE: The patient is a 28-year-old female, who noticed a lump in the left inguinal area, but was above the left inguinal canal, was not sure whether this was a hernia or a mass and she wanted to have this removed. FINDINGS: The patient actually had a spigelian hernia. There was omentum incarcerated through the defect in the fascia. PROCEDURE NOTE: After informed consent was obtained, the patient was brought to the operating room, placed on the table in supine position. She was sterilely prepped and draped in normal fashion. Local lidocaine was used to infiltrate above the lump that was palpable in the left inguinal and left lower quadrant area and then also performed an ilioinguinal nerve block. I then made an incision with #15 blade, carried down through the skin into subcutaneous tissue, then deepened down to subcutaneous tissue with Bovie electrocautery down to what was felt to be a mass, started dissecting this off and while dissecting around it, noted we were right on the abdominal wall and fascia and dissected this off and actually, it came off with omentum, removed this and passed off the table. A little bit more omentum was pushed back into the abdomen, grasped the 2 edges of the fascia with Dayana's, opened it slightly and then able to grasp the peritoneum, closed the peritoneum with 3-0 Vicryl [id number] suture. This appeared to be a spigelian hernia. Then, closed the fascia with 0 Vicryl. Two ennmiz-[id number]-fxndjy sutures were used to close the fascia. At this point, then irrigated, dried this off and then elected to close the incision, closing the skin with a 4-0 undyed Monocryl in running subcuticular fashion. Area was cleaned and dried. Dermabond was placed as well as a pressure dressing. The patient was then transferred to recovery room in stable condition. Sponge, instrument and needle count were correct at the end of the case. Job ID: [id number] DocumentID: [id number] Dictated Date: 11/14/2018 11:35:09 Director Agricultural Services Date: 11/14/2018 16:32:09 Dictated By: KEYUR MAS DO
== END 2018-11-14 13:06 | disposition home or self-care (01) ==
LOC: SDC 07:40
PROVIDERS: ATTEND Surgery
DX: K43.6 Other and unspecified ventral hernia with obstruction, without gangrene (principal); Z87.891 Personal history of nicotine dependence
CPT/HCPCS: 84703; 87081; 94664

== ENCOUNTER → 2019-04-28 | Outpatient (CLI) | payer MEDICAID ==
[~2019-04-28] MED LIST changes: +HOLD METFORMIN - RECEIVED CONTRAST 20 ML VIAL IV SCH; +IOHEXOL 350 MG/ML 100 ML (OMNIPAQUE 350) VIAL IV ONE; +NS 100 ML (IVPB) BAG IV ONE
--- NOTE | 2019-04-28 11:32 | Diagnostic Imaging Report ---
PROCEDURE: CT abdomen and pelvis with contrast. TECHNIQUE: Multiple contiguous axial images were obtained through the abdomen and pelvis after administration of intravenous contrast. Auto Exposure Controls were utilized during the CT exam to meet ALARA standards for radiation dose reduction. INDICATION: Right upper quadrant pain. FINDINGS: Comparison is 06/17/2016. Limited views of the lower thorax are normal. Liver is normal. No focal liver lesions are seen. Gallbladder is normal. No biliary ductal dilation. Portal vein is patent. Pancreas, spleen and adrenal glands are normal. Kidneys enhance symmetrically without focal lesion. No hydronephrosis. Urinary bladder is normal. Intrauterine device is in the expected position. Uterus and ovaries are normal for age. There are no dilated loops of large or small bowel. No obstruction or inflammation. The appendix is surgically absent. No abdominal or pelvic lymphadenopathy. Abdominal aorta is normal in caliber. There are no suspicious osseous lesions. There are bilateral L5/S1 pars defects. No anterolisthesis. IMPRESSION: 1. No acute abnormality in the abdomen or pelvis. Dictated by: Dictated on workstation # [id number]
== END ==
LOC: RAD 08:48
PROVIDERS: ATTEND Nurse Practitioner Family
DX: R10.11 Right upper quadrant pain (principal); Z97.5 Presence of (intrauterine) contraceptive device
CPT/HCPCS: 74177

== ENCOUNTER → 2019-12-09 | Outpatient (CLI) | payer OTHER ==
[~2019-12-09] MED LIST changes: -HOLD METFORMIN - RECEIVED CONTRAST 20 ML VIAL IV SCH; -IOHEXOL 350 MG/ML 100 ML (OMNIPAQUE 350) VIAL IV ONE; -NS 100 ML (IVPB) BAG IV ONE
--- NOTE | 2019-12-09 14:11 | Diagnostic Imaging Report ---
INDICATION: Family history of breast carcinoma. Patient does complain of bilateral breast pain. COMPARISON: No prior studies are available for comparison. TECHNIQUE: 2D and 3D bilateral diagnostic mammography was performed with CAD. FINDINGS: Both breasts are heterogeneously dense, limiting the sensitivity of mammography. No mass or malignant appearing microcalcifications are seen. The axillae are unremarkable. IMPRESSION: No mammographic features suspicious for malignancy are identified. ACR BI-RADS Category 1: Negative. Result letter will be mailed to the patient. Note: At least 10% of breast cancer is not imaged by mammography. Dictated by: Dictated on workstation # [id number]
== END ==
LOC: RAD 13:04
PROVIDERS: ATTEND Nurse Practitioner Family
DX: N64.4 Mastodynia (principal); N63.0 Unspecified lump in unspecified breast; Z80.3 Family history of malignant neoplasm of breast
CPT/HCPCS: 77066